=== PATIENT | female | born 1950 | race Caucasian/White ===

== ENCOUNTER 2021-08-03 18:57 | Inpatient (IN) | payer OTHER ==
[2021-08-03] MEDS ORDERED: VANCOMYCIN 1 GM in D5W (PRE-DOCKED) 1,000 MG/250 ML IVPB ONE (21:07)
[2021-08-03] MEDS ORDERED: PIPERACILLIN/TAZOB 4.5 GM 4.5 GM in DEXTROSE 5%-WATER 100 ML IVPB ONE (21:08)
[2021-08-03] MEDS ORDERED: methylPREDNISolone NA SUCC 125 MG/2 ML VIAL IVPB ONE (21:18)
[2021-08-03] MEDS ORDERED: methylPREDNISolone NA SUCC 125 MG/2 ML VIAL ONE (21:26)
[2021-08-03] MEDS ORDERED: PIPERACILLIN/TAZOB 4.5 GM 4.5 GM/100 ML BAG IVPB ONE (21:26)
[2021-08-03 21:38] LABS: BASO % 0.3 % (0-2.0); EOS % 1.1 % (0-4.5); HEMATOCRIT 30.8 % (32.4-45.2); HEMOGLOBIN 9.6 GM/dL (10.7-15.3); LYMPH % 10.2 % (8-40); MCH 28.9 pg (25.7-33.7); MCHC 31.2 g/dl (32.0-36.0); MEAN CELL VOLUME 92.7 fl (80-96); MEAN PLT VOLUME 11.2 fl (7.5-11.1); MONO % 8.3 % (3.8-10.2); NEUT % 80.1 % (42.8-82.8); PLATELET COUNT 279 10^3/uL (134-434); RBC 3.33 M/mm3 (3.60-5.2); RDW 16.3 % (11.6-15.6); WHITE BLOOD COUNT 11.2 K/mm3 (4.0-10.0)
[2021-08-03 22:14] LABS: CALCIUM 8.8 mg/dL (8.5-10.1)
[2021-08-03 22:15] LABS: ALBUMIN 2.8 g/dl (3.4-5.0); BLOOD UREA NITROGEN 38.8 mg/dL (7-18); MAGNESIUM 2.4 mg/dL (1.8-2.4)
[2021-08-03 22:18] LABS: CREATININE 0.7 mg/dL (0.55-1.3); PHOSPHOROUS 4.9 mg/dL (2.5-4.9)
[2021-08-03 22:19] LABS: BILIRUBIN,TOTAL 0.3 mg/dL (0.2-1); TOT PROT 6.7 g/dl (6.4-8.2)
[2021-08-03 22:25] LABS: N-TERMINAL BNP 638.6 pg/ml (5-125)
[2021-08-03] MEDS ORDERED: VANCOMYCIN 1 GRAM (PRE-DOCKED) 1,000 MG/250 ML BAG IVPB ONE (23:07)
[2021-08-03 23:09] LABS: VENOUS BASE EXCESS 8.9 mmol/L (-2-2); VENOUS O2 SATURATION 64.9 % (70-80); VENOUS PH 7.307 (7.310-7.410)
[2021-08-03 23:12] LABS: VENOUS PCO2 76.6 mmHg (38-52)
[2021-08-04] MEDS ORDERED: methylPREDNISolone NA SUCC 40 MG/1 ML VIAL ONE (04:01)
[2021-08-04] MEDS: methylPREDNISolone NA SUCC 40 MG/1 ML VIAL IVPUSH SCH ×3 (04:09→17:54)
[2021-08-04] MEDS ORDERED: ALPRAZolam 1 MG TABLET GT PRN (08:10)
[2021-08-04 08:53] LABS: CALCIUM 9.6 mg/dL (8.5-10.1)
[2021-08-04 08:54] LABS: ALBUMIN 3.3 g/dl (3.4-5.0); BLOOD UREA NITROGEN 39.2 mg/dL (7-18)
[2021-08-04 08:55] LABS: CREATININE 0.9 mg/dL (0.55-1.3)
[2021-08-04 08:57] LABS: BILIRUBIN,TOTAL 0.2 mg/dL (0.2-1); TOT PROT 7.5 g/dl (6.4-8.2)
[2021-08-04 08:58] LABS: HEMATOCRIT 35.9 % (32.4-45.2); HEMOGLOBIN 11.1 GM/dL (10.7-15.3); MCHC 30.8 g/dl (32.0-36.0); MEAN CELL VOLUME 93.9 fl (80-96); MEAN PLT VOLUME 10.3 fl (7.5-11.1); PLATELET COUNT 261 10^3/uL (134-434); RBC 3.83 M/mm3 (3.60-5.2); RDW 15.4 % (11.6-15.6); WHITE BLOOD COUNT 8.8 K/mm3 (4.0-10.0)
[2021-08-04] MEDS ORDERED: AZITHROMYCIN IVPB 500 MG/250 ML BAG IVPB SCH (10:00)
[2021-08-04] MEDS ORDERED: buPROPion HCL 100 MG TABLET GT SCH (10:00)
[2021-08-04] MEDS: APIXABAN 5 MG TABLET GT SCH ×2 (11:43→21:22)
[2021-08-04 11:57] LABS: ARTERIAL BLD GAS O2 SATURATION 98.8 % (95-98); ARTERIAL BLOOD GAS PO2 173.9 mmHg (80-100); ARTERIAL BLOOD GAS pH 7.226 (7.350-7.450)
[2021-08-04 11:58] LABS: ALLENS TEST POSITIVE
[2021-08-04] MEDS ORDERED: MELATONIN 5 MG TABLETS PO PRN (13:01)
[2021-08-04] MEDS ORDERED: FUROSEMIDE 40 MG TABLET (FP) PO SCH (14:00)
[2021-08-04 14:33] LABS: ALLENS TEST POSITIVE; ARTERIAL BLD GAS O2 SATURATION 94.2 % (95-98); ARTERIAL BLOOD GAS PO2 85.8 mmHg (80-100); ARTERIAL BLOOD GAS pH 7.243 (7.350-7.450)
[2021-08-04 14:34] LABS: VENT MODE A/C; VENT RATE 14
[2021-08-04] MEDS ORDERED: cefTRIAXone SODIUM 1 GM VIAL ONE (14:49)
[2021-08-04] MEDS ORDERED: DEXTROSE 5%-WATER - 50 ML IVPB ONE (14:49)
[2021-08-04] MEDS: CEFTRIAXONE 1 GM in DEXTROSE 5%-WATER - 50 ML IVPB SCH (15:06)
[2021-08-04] MEDS: PANTOPRAZOLE SODIUM 40 MG VIAL IVPUSH SCH (15:06)
[2021-08-04] MEDS: FUROSEMIDE 40 MG TABLET (FP) GT SCH (15:08)
[2021-08-04] MEDS: AZITHROMYCIN IVPB 500 MG/250 ML BAG IVPB SCH (15:38)
[2021-08-04] MEDS: buPROPion HCL 100 MG TABLET GT SCH (16:37)
[2021-08-04] MEDS: BUDESONIDE 0.5 MG/2 ML INH SUSP VIAL NEB SCH (20:40)
[2021-08-04] MEDS: ALBUTEROL SO4 2.5/IPRATROPIUM 0.5 INH SOL 3 ML VIAL.NEB. NEB SCH (20:40)
[2021-08-04] MEDS: ATORVASTATIN CA 40 MG TABLET (FP) GT SCH (21:22)
[2021-08-04] MEDS: CHLORHEXIDINE GLUCONATE 4% CLEANSER FOR DECOLONIZATION TP SCH (21:22)
[2021-08-04] MEDS: MUPIROCIN 2% TOPICAL OINTMENT FOR DECOLONIZATION NS SCH (21:26)
[2021-08-04] MEDS: MONTELUKAST NA 5 MG TAB.CHEW GT SCH (23:10)
[2021-08-05] MEDS: methylPREDNISolone NA SUCC 40 MG/1 ML VIAL IVPUSH SCH ×3 (01:18→18:06)
[2021-08-05] MEDS: FUROSEMIDE 40 MG TABLET (FP) GT SCH ×2 (05:13→13:57)
[2021-08-05 06:47] LABS: BASO % 0.1 % (0-2.0); HEMATOCRIT 28.8 % (32.4-45.2); HEMOGLOBIN 9.2 GM/dL (10.7-15.3); MCH 29.3 pg (25.7-33.7); MCHC 32.1 g/dl (32.0-36.0); MEAN CELL VOLUME 91.5 fl (80-96); MEAN PLT VOLUME 9.8 fl (7.5-11.1); MONO % 2.6 % (3.8-10.2); NEUT % 87.3 % (42.8-82.8); PLATELET COUNT 235 10^3/uL (134-434); RBC 3.15 M/mm3 (3.60-5.2); WHITE BLOOD COUNT 6.6 K/mm3 (4.0-10.0)
[2021-08-05 07:04] LABS: BLOOD UREA NITROGEN 37.8 mg/dL (7-18); MAGNESIUM 2.4 mg/dL (1.8-2.4)
[2021-08-05 07:04] LABS: ARTERIAL BLD GAS O2 SATURATION 95.7 % (95-98); ARTERIAL BLOOD GAS BASE EXCESS 11.1 mmol/L (-2-2); ARTERIAL BLOOD GAS PO2 86.8 mmHg (80-100); ARTERIAL BLOOD GAS pH 7.348 (7.350-7.450)
[2021-08-05 07:06] LABS: ALLENS TEST POSITIVE; VENT MODE A/C; VENT RATE 16
[2021-08-05 07:07] LABS: CREATININE 0.7 mg/dL (0.55-1.3); PHOSPHOROUS 3.6 mg/dL (2.5-4.9)
[2021-08-05 07:09] LABS: BILIRUBIN,TOTAL 0.2 mg/dL (0.2-1)
[2021-08-05 07:21] LABS: ALBUMIN 2.6 g/dl (3.4-5.0)
[2021-08-05] MEDS: ALBUTEROL SO4 2.5/IPRATROPIUM 0.5 INH SOL 3 ML VIAL.NEB. NEB SCH ×4 (08:00→20:48)
[2021-08-05] MEDS: BUDESONIDE 0.5 MG/2 ML INH SUSP VIAL NEB SCH ×2 (08:00→20:48)
[2021-08-05] MEDS ORDERED: DEXTROSE 5%-WATER - 50 ML IVPB ONE (09:51)
[2021-08-05] MEDS ORDERED: cefTRIAXone SODIUM 1 GM VIAL ONE (09:51)
[2021-08-05] MEDS ORDERED: acetaZOLAMIDE 250 MG TABLET PO SCH (10:00)
[2021-08-05] MEDS ORDERED: acetaZOLAMIDE 250 MG TABLET GT SCH (10:00)
[2021-08-05] MEDS ORDERED: AZITHROMYCIN IVPB 500 MG/250 ML BAG IVPB SCH (10:00)
[2021-08-05] MEDS: CEFTRIAXONE 1 GM in DEXTROSE 5%-WATER - 50 ML IVPB SCH (10:12)
[2021-08-05] MEDS: PANTOPRAZOLE SODIUM 40 MG VIAL IVPUSH SCH (10:12)
[2021-08-05] MEDS: MUPIROCIN 2% TOPICAL OINTMENT FOR DECOLONIZATION NS SCH ×2 (10:13→21:43)
[2021-08-05] MEDS: AZITHROMYCIN IVPB 500 MG/250 ML BAG IVPB SCH (10:13)
[2021-08-05] MEDS: APIXABAN 5 MG TABLET GT SCH ×2 (10:18→21:43)
[2021-08-05] MEDS: buPROPion HCL 100 MG TABLET GT SCH (10:55)
[2021-08-05 17:58] LABS: PH,URINE 5.5 (5.0-8.0); URINE APPEARANCE CLEAR; URINE BILIRUBIN NEGATIVE (NEGATIVE); URINE COLOR YELLOW; URINE GLUCOSE (UA) NEGATIVE (NEGATIVE); URINE KETONE NEGATIVE (NEGATIVE); URINE LEUK ESTERASE NEGATIVE (NEGATIVE); URINE NITRITE NEGATIVE (NEGATIVE); URINE PROTEIN NEGATIVE (NEGATIVE); URINE UROBILINOGEN 0.2 mg/dL (0.2-1.0)
[2021-08-05] MEDS ORDERED: ALPRAZolam 1 MG TABLET GT ONE (19:32)
[2021-08-05] MEDS: MONTELUKAST NA 5 MG TAB.CHEW GT SCH (21:42)
[2021-08-05] MEDS: CHLORHEXIDINE GLUCONATE 4% CLEANSER FOR DECOLONIZATION TP SCH (21:43)
[2021-08-05] MEDS: ATORVASTATIN CA 40 MG TABLET (FP) GT SCH (21:43)
[2021-08-06] MEDS: methylPREDNISolone NA SUCC 40 MG/1 ML VIAL IVPUSH SCH ×3 (01:20→21:57)
[2021-08-06] MEDS: FUROSEMIDE 40 MG TABLET (FP) GT SCH ×2 (05:51→13:53)
[2021-08-06 07:32] LABS: HEMATOCRIT 30.9 % (32.4-45.2); HEMOGLOBIN 9.6 GM/dL (10.7-15.3); MCH 28.2 pg (25.7-33.7); MCHC 31.2 g/dl (32.0-36.0); MEAN CELL VOLUME 90.3 fl (80-96); MEAN PLT VOLUME 9.9 fl (7.5-11.1); PLATELET COUNT 255 10^3/uL (134-434); RBC 3.42 M/mm3 (3.60-5.2); RDW 15.6 % (11.6-15.6); WHITE BLOOD COUNT 7.6 K/mm3 (4.0-10.0)
[2021-08-06 07:35] LABS: ALBUMIN 2.7 g/dl (3.4-5.0); BLOOD UREA NITROGEN 43.9 mg/dL (7-18)
[2021-08-06 07:39] LABS: CREATININE 0.7 mg/dL (0.55-1.3)
[2021-08-06 07:40] LABS: BILIRUBIN,TOTAL 0.3 mg/dL (0.2-1); TOT PROT 6.2 g/dl (6.4-8.2)
[2021-08-06] MEDS: ALBUTEROL SO4 2.5/IPRATROPIUM 0.5 INH SOL 3 ML VIAL.NEB. NEB SCH ×4 (08:00→20:05)
[2021-08-06] MEDS: BUDESONIDE 0.5 MG/2 ML INH SUSP VIAL NEB SCH ×2 (08:35→20:05)
[2021-08-06] MEDS ORDERED: cefTRIAXone SODIUM 1 GM VIAL ONE (09:22)
[2021-08-06] MEDS ORDERED: DEXTROSE 5%-WATER - 50 ML IVPB ONE (09:22)
[2021-08-06] MEDS: MUPIROCIN 2% TOPICAL OINTMENT FOR DECOLONIZATION NS SCH ×2 (10:08→21:57)
[2021-08-06] MEDS: CEFTRIAXONE 1 GM in DEXTROSE 5%-WATER - 50 ML IVPB SCH (10:09)
[2021-08-06] MEDS: buPROPion HCL 100 MG TABLET GT SCH (10:09)
[2021-08-06] MEDS: APIXABAN 5 MG TABLET GT SCH ×2 (10:09→21:57)
[2021-08-06] MEDS: AZITHROMYCIN IVPB 500 MG/250 ML BAG IVPB SCH (10:12)
[2021-08-06] MEDS: PANTOPRAZOLE SODIUM 40 MG VIAL IVPUSH SCH (10:12)
[2021-08-06] MEDS ORDERED: ALPRAZolam 1 MG TABLET GT ONE (21:29)
[2021-08-06] MEDS: CHLORHEXIDINE GLUCONATE 4% CLEANSER FOR DECOLONIZATION TP SCH (21:57)
[2021-08-06] MEDS: ATORVASTATIN CA 40 MG TABLET (FP) GT SCH (21:57)
[2021-08-06] MEDS: MONTELUKAST NA 5 MG TAB.CHEW GT SCH (21:57)
[2021-08-07] MEDS ORDERED: ACETAMINOPHEN 325 MG TABLET (FP) PO ONE (02:44)
[2021-08-07] MEDS ORDERED: ACETAMINOPHEN 650 MG/20.3 ML ORAL SOLUTION (CUPS) GT ONE (02:47)
[2021-08-07] MEDS: FUROSEMIDE 40 MG TABLET (FP) GT SCH ×2 (06:18→14:02)
[2021-08-07] MEDS: ALBUTEROL SO4 2.5/IPRATROPIUM 0.5 INH SOL 3 ML VIAL.NEB. NEB SCH ×4 (07:05→20:56)
[2021-08-07] MEDS: BUDESONIDE 0.5 MG/2 ML INH SUSP VIAL NEB SCH ×2 (07:05→21:00)
[2021-08-07] MEDS ORDERED: cefTRIAXone SODIUM 1 GM VIAL ONE (09:01)
[2021-08-07] MEDS ORDERED: DEXTROSE 5%-WATER - 50 ML IVPB ONE (09:01)
[2021-08-07] MEDS: CEFTRIAXONE 1 GM in DEXTROSE 5%-WATER - 50 ML IVPB SCH (09:35)
[2021-08-07] MEDS: AZITHROMYCIN IVPB 500 MG/250 ML BAG IVPB SCH (09:35)
[2021-08-07] MEDS: methylPREDNISolone NA SUCC 40 MG/1 ML VIAL IVPUSH SCH ×2 (09:35→22:13)
[2021-08-07] MEDS: APIXABAN 5 MG TABLET GT SCH ×2 (09:36→22:12)
[2021-08-07] MEDS: PANTOPRAZOLE SODIUM 40 MG VIAL IVPUSH SCH (09:36)
[2021-08-07] MEDS: buPROPion HCL 100 MG TABLET GT SCH (09:36)
[2021-08-07] MEDS: MUPIROCIN 2% TOPICAL OINTMENT FOR DECOLONIZATION NS SCH ×2 (09:36→22:13)
[2021-08-07] MEDS ORDERED: hydrALAZINE HCL 20 MG/ML VIAL IVPUSH ONE (19:59)
[2021-08-07] MEDS ORDERED: ALPRAZolam 0.25 MG TABLET GT PRN (21:10)
[2021-08-07] MEDS: ATORVASTATIN CA 40 MG TABLET (FP) GT SCH (22:12)
[2021-08-07] MEDS: CHLORHEXIDINE GLUCONATE 4% CLEANSER FOR DECOLONIZATION TP SCH (22:13)
[2021-08-07] MEDS: MONTELUKAST NA 5 MG TAB.CHEW GT SCH (22:13)
[2021-08-08] MEDS: FUROSEMIDE 40 MG TABLET (FP) GT SCH ×2 (05:45→15:02)
[2021-08-08 07:37] LABS: CHLORIDE 91 mmol/L (98-107); SODIUM 140 mmol/L (136-145)
[2021-08-08 07:42] LABS: ALBUMIN 3.2 g/dl (3.4-5.0); CALCIUM 9.3 mg/dL (8.5-10.1); GLUCOSE,RANDOM 172 mg/dL (74-106)
[2021-08-08 07:43] LABS: BLOOD UREA NITROGEN 33.2 mg/dL (7-18)
[2021-08-08 07:45] LABS: CREATININE 0.6 mg/dL (0.55-1.3); SGOT/AST 9 U/L (15-37); SGPT/ALT 17 U/L (13-61)
[2021-08-08 07:47] LABS: BILIRUBIN,TOTAL 0.2 mg/dL (0.2-1); TOT PROT 6.7 g/dl (6.4-8.2)
[2021-08-08 07:48] LABS: ALK PHOS 82 U/L (45-117); ANION GAP 4 MMOL/L (8-16); CO2 > 45 mmol/L (21-32)
[2021-08-08] MEDS: BUDESONIDE 0.5 MG/2 ML INH SUSP VIAL NEB SCH ×2 (08:25→20:05)
[2021-08-08] MEDS: ALBUTEROL SO4 2.5/IPRATROPIUM 0.5 INH SOL 3 ML VIAL.NEB. NEB SCH ×4 (08:30→20:05)
[2021-08-08] MEDS ORDERED: cefTRIAXone SODIUM 1 GM VIAL ONE (09:43)
[2021-08-08] MEDS ORDERED: DEXTROSE 5%-WATER - 50 ML IVPB ONE (09:43)
[2021-08-08] MEDS: methylPREDNISolone NA SUCC 40 MG/1 ML VIAL IVPUSH SCH ×2 (09:57→22:17)
[2021-08-08] MEDS: CEFTRIAXONE 1 GM in DEXTROSE 5%-WATER - 50 ML IVPB SCH (09:58)
[2021-08-08] MEDS: APIXABAN 5 MG TABLET GT SCH ×2 (10:00→22:17)
[2021-08-08] MEDS: PANTOPRAZOLE SODIUM 40 MG VIAL IVPUSH SCH (10:00)
[2021-08-08] MEDS: buPROPion HCL 100 MG TABLET GT SCH (10:01)
[2021-08-08] MEDS: MUPIROCIN 2% TOPICAL OINTMENT FOR DECOLONIZATION NS SCH ×2 (10:02→22:17)
[2021-08-08] MEDS: AZITHROMYCIN IVPB 500 MG/250 ML BAG IVPB SCH (10:22)
[2021-08-08] MEDS: THEOPHYLLINE ANHYDROUS 80 MG/15 ML GT SCH ×2 (12:18→22:17)
[2021-08-08] MEDS: MONTELUKAST NA 5 MG TAB.CHEW GT SCH (22:17)
[2021-08-08] MEDS: CHLORHEXIDINE GLUCONATE 4% CLEANSER FOR DECOLONIZATION TP SCH (22:17)
[2021-08-08] MEDS: ATORVASTATIN CA 40 MG TABLET (FP) GT SCH (22:17)
[2021-08-09] MEDS ORDERED: ALBUTEROL SO4 2.5/IPRATROPIUM 0.5 INH SOL 3 ML VIAL.NEB. NEB ONE (00:42)
[2021-08-09] MEDS ORDERED: LORazepam 2 MG/ML SDV VIAL IVPUSH ONE (05:10)
[2021-08-09] MEDS: FUROSEMIDE 40 MG TABLET (FP) GT SCH ×2 (05:19→14:00)
[2021-08-09] MEDS: ALBUTEROL SO4 2.5/IPRATROPIUM 0.5 INH SOL 3 ML VIAL.NEB. NEB SCH ×4 (08:50→20:10)
[2021-08-09] MEDS: BUDESONIDE 0.5 MG/2 ML INH SUSP VIAL NEB SCH ×2 (08:50→20:10)
[2021-08-09] MEDS ORDERED: cefTRIAXone SODIUM 1 GM VIAL ONE (09:00)
[2021-08-09] MEDS ORDERED: DEXTROSE 5%-WATER - 50 ML IVPB ONE (09:01)
[2021-08-09 09:02] LABS: BASO % 0.1 % (0-2.0); EOS % 0.1 % (0-4.5); HEMATOCRIT 38.4 % (32.4-45.2); HEMOGLOBIN 12.3 GM/dL (10.7-15.3); LYMPH % 11.4 % (8-40); MCH 28.9 pg (25.7-33.7); MEAN CELL VOLUME 90.4 fl (80-96); MEAN PLT VOLUME 9.8 fl (7.5-11.1); MONO % 5.1 % (3.8-10.2); NEUT % 83.3 % (42.8-82.8); PLATELET COUNT 359 10^3/uL (134-434); RBC 4.25 M/mm3 (3.60-5.2); RDW 15.2 % (11.6-15.6); WHITE BLOOD COUNT 15.2 K/mm3 (4.0-10.0)
[2021-08-09 09:18] LABS: CHLORIDE 87 mmol/L (98-107); SODIUM 137 mmol/L (136-145)
[2021-08-09 09:19] LABS: ALBUMIN 3.4 g/dl (3.4-5.0)
[2021-08-09 09:20] LABS: CALCIUM 9.6 mg/dL (8.5-10.1)
[2021-08-09 09:21] LABS: BLOOD UREA NITROGEN 39.7 mg/dL (7-18); GLUCOSE,RANDOM 97 mg/dL (74-106); MAGNESIUM 2.4 mg/dL (1.8-2.4)
[2021-08-09] MEDS: PANTOPRAZOLE SODIUM 40 MG VIAL IVPUSH SCH (09:22)
[2021-08-09] MEDS: methylPREDNISolone NA SUCC 40 MG/1 ML VIAL IVPUSH SCH ×2 (09:23→22:21)
[2021-08-09] MEDS: MUPIROCIN 2% TOPICAL OINTMENT FOR DECOLONIZATION NS SCH (09:23)
[2021-08-09] MEDS: CEFTRIAXONE 1 GM in DEXTROSE 5%-WATER - 50 ML IVPB SCH (09:23)
[2021-08-09] MEDS: APIXABAN 5 MG TABLET GT SCH ×2 (09:23→22:20)
[2021-08-09 09:24] LABS: CREATININE 0.7 mg/dL (0.55-1.3); PHOSPHOROUS 3.7 mg/dL (2.5-4.9); SGOT/AST 10 U/L (15-37); SGPT/ALT 17 U/L (13-61)
[2021-08-09] MEDS: AZITHROMYCIN IVPB 500 MG/250 ML BAG IVPB SCH (09:24)
[2021-08-09 09:25] LABS: BILIRUBIN,TOTAL 0.2 mg/dL (0.2-1); TOT PROT 6.7 g/dl (6.4-8.2)
[2021-08-09 09:27] LABS: ALK PHOS 83 U/L (45-117)
[2021-08-09] MEDS: THEOPHYLLINE ANHYDROUS 80 MG/15 ML GT SCH ×2 (09:29→22:21)
[2021-08-09] MEDS: buPROPion HCL 100 MG TABLET GT SCH (09:29)
[2021-08-09 09:46] LABS: ANION GAP 5 MMOL/L (8-16); CO2 > 45 mmol/L (21-32)
[2021-08-09] MEDS ORDERED: FUROSEMIDE 40 MG/4 ML INJECTABLE VIAL IVPUSH ONE (12:20)
[2021-08-09] MEDS ORDERED: METOPROLOL TARTRATE 5 MG/5 ML VIAL IVPUSH ONE (13:22)
[2021-08-09] MEDS ORDERED: METOPROLOL TARTRATE 5 MG/5 ML VIAL ONE (13:26)
[2021-08-09] MEDS ORDERED: ALPRAZolam 0.25 MG TABLET PO ONE (17:22)
[2021-08-09] MEDS: ATORVASTATIN CA 40 MG TABLET (FP) GT SCH (22:20)
[2021-08-09] MEDS: CHLORHEXIDINE GLUCONATE 4% CLEANSER FOR DECOLONIZATION TP SCH (22:20)
[2021-08-09] MEDS: MONTELUKAST NA 5 MG TAB.CHEW GT SCH (22:21)
[2021-08-09] MEDS: BANATROL PLUS POWDER PACKET PO SCH (23:48)
[2021-08-10] MEDS ORDERED: ALBUTEROL SO4 2.5/IPRATROPIUM 0.5 INH SOL 3 ML VIAL.NEB. NEB ONE (01:20)
[2021-08-10] MEDS ORDERED: ACETAMINOPHEN 1000 MG/100 ML BAG IVPB ONE ×2 (01:20)
[2021-08-10] MEDS ORDERED: ACETAMINOPHEN 325 MG TABLET (FP) PO ONE (01:20)
[2021-08-10] MEDS: FUROSEMIDE 40 MG TABLET (FP) GT SCH ×2 (06:56→14:00)
[2021-08-10] MEDS: BANATROL PLUS POWDER PACKET PO SCH ×3 (06:56→21:29)
[2021-08-10] MEDS: ALBUTEROL SO4 2.5/IPRATROPIUM 0.5 INH SOL 3 ML VIAL.NEB. NEB SCH ×4 (07:25→20:29)
[2021-08-10] MEDS: BUDESONIDE 0.5 MG/2 ML INH SUSP VIAL NEB SCH ×2 (07:26→20:30)
[2021-08-10] MEDS ORDERED: cefTRIAXone SODIUM 1 GM VIAL ONE (09:55)
[2021-08-10] MEDS ORDERED: DEXTROSE 5%-WATER - 50 ML IVPB ONE (09:55)
[2021-08-10] MEDS: PANTOPRAZOLE SODIUM 40 MG VIAL IVPUSH SCH (10:10)
[2021-08-10] MEDS: CEFTRIAXONE 1 GM in DEXTROSE 5%-WATER - 50 ML IVPB SCH (10:10)
[2021-08-10] MEDS: APIXABAN 5 MG TABLET GT SCH ×2 (10:10→21:29)
[2021-08-10] MEDS: methylPREDNISolone NA SUCC 40 MG/1 ML VIAL IVPUSH SCH ×2 (10:11→21:29)
[2021-08-10] MEDS: THEOPHYLLINE ANHYDROUS 80 MG/15 ML GT SCH ×2 (10:11→21:29)
[2021-08-10] MEDS: buPROPion HCL 100 MG TABLET GT SCH (10:11)
[2021-08-10] MEDS: AZITHROMYCIN IVPB 500 MG/250 ML BAG IVPB SCH (10:13)
[2021-08-10] MEDS ORDERED: ALPRAZolam 0.25 MG TABLET PO ONE (21:17)
[2021-08-10] MEDS: MONTELUKAST NA 5 MG TAB.CHEW GT SCH (21:29)
[2021-08-10] MEDS: CHLORHEXIDINE GLUCONATE 4% CLEANSER FOR DECOLONIZATION TP SCH (21:30)
[2021-08-10] MEDS: ATORVASTATIN CA 40 MG TABLET (FP) GT SCH (21:31)
[2021-08-10 21:47] LABS: EPI CELLS 1 /uL (0-25.1); HYALINE CASTS 0 /uL (0-3.1); URINE APPEARANCE CLEAR; URINE BACTERIA 16 /uL (0-1359); URINE BILIRUBIN NEGATIVE (NEGATIVE); URINE COLOR YELLOW; URINE GLUCOSE (UA) NEGATIVE (NEGATIVE); URINE KETONE NEGATIVE (NEGATIVE); URINE LEUK ESTERASE TRACE (NEGATIVE); URINE NITRITE NEGATIVE (NEGATIVE); URINE PROTEIN NEGATIVE (NEGATIVE); URINE RBC 22 /uL (0-23.9); URINE UROBILINOGEN 0.2 mg/dL (0.2-1.0); URINE WBC 3 /uL (0-25.8)
[2021-08-11] MEDS ORDERED: ALBUTEROL SO4 2.5/IPRATROPIUM 0.5 INH SOL 3 ML VIAL.NEB. NEB ONE (01:54)
[2021-08-11] MEDS: BANATROL PLUS POWDER PACKET PO SCH ×3 (05:35→21:01)
[2021-08-11] MEDS: FUROSEMIDE 40 MG TABLET (FP) GT SCH ×2 (05:35→14:23)
[2021-08-11] MEDS: ALBUTEROL SO4 2.5/IPRATROPIUM 0.5 INH SOL 3 ML VIAL.NEB. NEB SCH ×4 (08:02→20:11)
[2021-08-11] MEDS: BUDESONIDE 0.5 MG/2 ML INH SUSP VIAL NEB SCH ×2 (08:03→20:11)
[2021-08-11] MEDS: PANTOPRAZOLE SODIUM 40 MG VIAL IVPUSH SCH (10:44)
[2021-08-11] MEDS: buPROPion HCL 100 MG TABLET GT SCH (10:44)
[2021-08-11] MEDS: APIXABAN 5 MG TABLET GT SCH ×2 (10:44→21:01)
[2021-08-11] MEDS: THEOPHYLLINE ANHYDROUS 80 MG/15 ML GT SCH ×2 (10:44→21:02)
[2021-08-11] MEDS: methylPREDNISolone NA SUCC 40 MG/1 ML VIAL IVPUSH SCH ×2 (10:44→21:01)
[2021-08-11] MEDS ORDERED: THEOPHYLLINE ANHYDROUS 80 MG/15 ML GT SCH (11:30)
[2021-08-11] MEDS: ALPRAZolam 1 MG TABLET PO SCH (14:56)
[2021-08-11] MEDS: ATORVASTATIN CA 40 MG TABLET (FP) GT SCH (21:01)
[2021-08-11] MEDS: CHLORHEXIDINE GLUCONATE 4% CLEANSER FOR DECOLONIZATION TP SCH (21:01)
[2021-08-11] MEDS: MONTELUKAST NA 5 MG TAB.CHEW GT SCH (21:02)
[2021-08-12] MEDS: ALPRAZolam 1 MG TABLET PO SCH ×2 (01:48→14:56)
[2021-08-12] MEDS: FUROSEMIDE 40 MG TABLET (FP) GT SCH ×2 (05:25→14:56)
[2021-08-12] MEDS: BANATROL PLUS POWDER PACKET PO SCH ×3 (05:25→21:16)
[2021-08-12] MEDS ORDERED: ALBUTEROL SO4 2.5/IPRATROPIUM 0.5 INH SOL 3 ML VIAL.NEB. NEB ONE (06:06)
[2021-08-12] MEDS: ALBUTEROL SO4 2.5/IPRATROPIUM 0.5 INH SOL 3 ML VIAL.NEB. NEB SCH ×4 (08:10→20:15)
[2021-08-12] MEDS: BUDESONIDE 0.5 MG/2 ML INH SUSP VIAL NEB SCH ×2 (08:15→20:27)
[2021-08-12] MEDS: PANTOPRAZOLE SODIUM 40 MG VIAL IVPUSH SCH (10:04)
[2021-08-12] MEDS: APIXABAN 5 MG TABLET GT SCH ×2 (10:04→21:16)
[2021-08-12] MEDS: methylPREDNISolone NA SUCC 40 MG/1 ML VIAL IVPUSH SCH ×2 (10:04→21:16)
[2021-08-12] MEDS: buPROPion HCL 100 MG TABLET GT SCH (10:06)
[2021-08-12] MEDS: THEOPHYLLINE ANHYDROUS 80 MG/15 ML GT SCH ×2 (10:06→23:00)
[2021-08-12] MEDS ORDERED: dilTIAZem HCL 25 MG/5 ML - 5 ML VIAL IVPUSH PRN (17:12)
[2021-08-12] MEDS: ATORVASTATIN CA 40 MG TABLET (FP) GT SCH (21:16)
[2021-08-12] MEDS: MONTELUKAST NA 5 MG TAB.CHEW GT SCH (21:16)
[2021-08-12] MEDS: CHLORHEXIDINE GLUCONATE 4% CLEANSER FOR DECOLONIZATION TP SCH (21:16)
[2021-08-13] MEDS: ALPRAZolam 1 MG TABLET PO SCH ×2 (01:48→13:54)
[2021-08-13] MEDS: BANATROL PLUS POWDER PACKET PO SCH ×3 (05:44→21:42)
[2021-08-13] MEDS: FUROSEMIDE 40 MG TABLET (FP) GT SCH ×2 (05:44→13:44)
[2021-08-13] MEDS: BUDESONIDE 0.5 MG/2 ML INH SUSP VIAL NEB SCH ×2 (07:39→21:03)
[2021-08-13] MEDS: ALBUTEROL SO4 2.5/IPRATROPIUM 0.5 INH SOL 3 ML VIAL.NEB. NEB SCH ×4 (07:39→20:53)
[2021-08-13] MEDS: methylPREDNISolone NA SUCC 40 MG/1 ML VIAL IVPUSH SCH (09:00)
[2021-08-13] MEDS: APIXABAN 5 MG TABLET GT SCH ×2 (09:01→21:42)
[2021-08-13] MEDS: PANTOPRAZOLE SODIUM 40 MG VIAL IVPUSH SCH (09:01)
[2021-08-13] MEDS: THEOPHYLLINE ANHYDROUS 80 MG/15 ML GT SCH ×2 (09:03→21:42)
[2021-08-13] MEDS: buPROPion HCL 100 MG TABLET PO SCH (09:11)
[2021-08-13] MEDS: PANTOPRAZOLE 40 MG TABLET PO SCH (10:51)
[2021-08-13] MEDS: predniSONE 20 MG TABLET (UD) PO SCH ×2 (10:51→21:42)
[2021-08-13] MEDS ORDERED: dilTIAZem HCL 25 MG/5 ML - 5 ML VIAL IVPUSH PRN (15:43)
[2021-08-13] MEDS: ATORVASTATIN CA 40 MG TABLET (FP) GT SCH (21:42)
[2021-08-13] MEDS: MONTELUKAST NA 5 MG TAB.CHEW GT SCH (21:42)
[2021-08-13] MEDS: CHLORHEXIDINE GLUCONATE 4% CLEANSER FOR DECOLONIZATION TP SCH (21:42)
[2021-08-14] MEDS: ALPRAZolam 1 MG TABLET PO SCH ×2 (01:49→14:16)
[2021-08-14] MEDS ORDERED: ALBUTEROL SO4 2.5/IPRATROPIUM 0.5 INH SOL 3 ML VIAL.NEB. NEB PRN (04:04)
[2021-08-14] MEDS: ALBUTEROL SO4 2.5/IPRATROPIUM 0.5 INH SOL 3 ML VIAL.NEB. NEB SCH ×4 (08:10→20:05)
[2021-08-14] MEDS: BUDESONIDE 0.5 MG/2 ML INH SUSP VIAL NEB SCH ×2 (08:10→20:05)
[2021-08-14] MEDS: predniSONE 20 MG TABLET (UD) PO SCH ×2 (11:53→21:48)
[2021-08-14] MEDS: APIXABAN 5 MG TABLET GT SCH ×2 (11:53→21:48)
[2021-08-14] MEDS: METOPROLOL TARTRATE 25 MG TABLET (FP) PO SCH ×2 (11:54→21:48)
[2021-08-14] MEDS: FUROSEMIDE 40 MG TABLET (FP) GT SCH (11:54)
[2021-08-14] MEDS: THEOPHYLLINE ANHYDROUS 80 MG/15 ML GT SCH ×2 (11:56→21:48)
[2021-08-14] MEDS: buPROPion HCL 100 MG TABLET PO SCH (13:07)
[2021-08-14] MEDS: PANTOPRAZOLE 40 MG TABLET PO SCH (13:07)
[2021-08-14] MEDS: ATORVASTATIN CA 40 MG TABLET (FP) GT SCH (21:48)
[2021-08-14] MEDS: MONTELUKAST NA 5 MG TAB.CHEW GT SCH (21:48)
[2021-08-15] MEDS ORDERED: ALBUTEROL SO4 2.5/IPRATROPIUM 0.5 INH SOL 3 ML VIAL.NEB. NEB ONE (01:19)
[2021-08-15] MEDS: ALPRAZolam 1 MG TABLET PO SCH ×2 (02:20→14:48)
[2021-08-15] MEDS: BUDESONIDE 0.5 MG/2 ML INH SUSP VIAL NEB SCH ×2 (08:40→20:24)
[2021-08-15] MEDS: ALBUTEROL SO4 2.5/IPRATROPIUM 0.5 INH SOL 3 ML VIAL.NEB. NEB SCH ×4 (08:40→20:23)
[2021-08-15] MEDS: APIXABAN 5 MG TABLET GT SCH ×2 (10:03→22:46)
[2021-08-15] MEDS: FUROSEMIDE 40 MG TABLET (FP) GT SCH (10:03)
[2021-08-15] MEDS: predniSONE 20 MG TABLET (UD) PO SCH (10:03)
[2021-08-15] MEDS: METOPROLOL TARTRATE 25 MG TABLET (FP) PO SCH (10:03)
[2021-08-15] MEDS: THEOPHYLLINE ANHYDROUS 80 MG/15 ML GT SCH ×2 (10:04→22:46)
[2021-08-15] MEDS: FAMOTIDINE 40 MG/5 ML ORAL SUSPENSION GT SCH ×2 (15:46→22:46)
[2021-08-15] MEDS: PANTOPRAZOLE 40 MG TABLET PO SCH (15:50)
[2021-08-15] MEDS ORDERED: buPROPion HCL 100 MG TABLET GT SCH ×2 (18:14→18:15)
[2021-08-15] MEDS: ALPRAZolam 1 MG TABLET GT SCH (18:23)
[2021-08-15] MEDS: buPROPion HCL 100 MG TABLET PO SCH (18:35)
[2021-08-15] MEDS: METOPROLOL TARTRATE 25 MG TABLET (FP) GT SCH (22:45)
[2021-08-15] MEDS: ATORVASTATIN CA 40 MG TABLET (FP) GT SCH (22:45)
[2021-08-15] MEDS: MONTELUKAST NA 5 MG TAB.CHEW GT SCH (22:46)
[2021-08-15] MEDS: predniSONE 20 MG TABLET (UD) GT SCH (22:46)
[2021-08-16] MEDS ORDERED: ALPRAZolam 1 MG TABLET GT ONE (01:38)
[2021-08-16] MEDS ORDERED: ALBUTEROL SO4 2.5/IPRATROPIUM 0.5 INH SOL 3 ML VIAL.NEB. NEB ONE (04:19)
[2021-08-16] MEDS: ALBUTEROL SO4 2.5/IPRATROPIUM 0.5 INH SOL 3 ML VIAL.NEB. NEB SCH ×5 (07:52→20:21)
[2021-08-16] MEDS: BUDESONIDE 0.5 MG/2 ML INH SUSP VIAL NEB SCH ×2 (07:53→20:23)
[2021-08-16] MEDS: METOPROLOL TARTRATE 25 MG TABLET (FP) GT SCH ×2 (09:45→22:02)
[2021-08-16] MEDS: APIXABAN 5 MG TABLET GT SCH ×2 (09:45→22:02)
[2021-08-16] MEDS: predniSONE 20 MG TABLET (UD) GT SCH ×2 (09:46→22:02)
[2021-08-16] MEDS: THEOPHYLLINE ANHYDROUS 80 MG/15 ML GT SCH ×2 (09:47→22:01)
[2021-08-16] MEDS: FUROSEMIDE 40 MG TABLET (FP) GT SCH (09:47)
[2021-08-16] MEDS: FAMOTIDINE 40 MG/5 ML ORAL SUSPENSION GT SCH ×2 (12:33→22:24)
[2021-08-16] MEDS: ALPRAZolam 1 MG TABLET GT SCH ×2 (13:39→22:01)
[2021-08-16] MEDS: buPROPion HCL 100 MG TABLET PO SCH (18:00)
[2021-08-16] MEDS: ATORVASTATIN CA 40 MG TABLET (FP) GT SCH (22:02)
[2021-08-16] MEDS: MONTELUKAST NA 5 MG TAB.CHEW GT SCH (22:02)
[2021-08-17] MEDS: ALPRAZolam 1 MG TABLET GT SCH ×2 (06:19→18:06)
[2021-08-17] MEDS: ALBUTEROL SO4 2.5/IPRATROPIUM 0.5 INH SOL 3 ML VIAL.NEB. NEB SCH ×4 (07:04→20:30)
[2021-08-17] MEDS: BUDESONIDE 0.5 MG/2 ML INH SUSP VIAL NEB SCH ×2 (07:04→20:31)
[2021-08-17 11:31] LABS: ALLENS TEST POSITIVE; ARTERIAL BLD GAS O2 SATURATION 97.9 % (95-98); ARTERIAL BLOOD GAS BASE EXCESS 16.2 mmol/L (-2-2); ARTERIAL BLOOD GAS PO2 115.4 mmHg (80-100); ARTERIAL BLOOD GAS pH 7.376 (7.350-7.450)
[2021-08-17] MEDS: APIXABAN 5 MG TABLET GT SCH ×2 (11:38→21:26)
[2021-08-17] MEDS: FUROSEMIDE 40 MG TABLET (FP) GT SCH (11:38)
[2021-08-17] MEDS: METOPROLOL TARTRATE 25 MG TABLET (FP) GT SCH ×2 (11:38→21:26)
[2021-08-17] MEDS: predniSONE 20 MG TABLET (UD) GT SCH ×2 (11:38→21:27)
[2021-08-17] MEDS: FAMOTIDINE 40 MG/5 ML ORAL SUSPENSION GT SCH ×2 (15:10→21:27)
[2021-08-17] MEDS: THEOPHYLLINE ANHYDROUS 80 MG/15 ML GT SCH ×2 (15:10→21:28)
[2021-08-17] MEDS: buPROPion HCL 100 MG TABLET PO SCH (15:11)
[2021-08-17] MEDS: POLYETHYLENE GLYCOL (HEALTHYLAX) 3350 17 GM PACKET PEG SCH (18:06)
[2021-08-17] MEDS: ATORVASTATIN CA 40 MG TABLET (FP) GT SCH (21:26)
[2021-08-17] MEDS: MONTELUKAST NA 5 MG TAB.CHEW GT SCH (21:28)
[2021-08-18] MEDS: ALBUTEROL SO4 0.083% IH SOL 2.5 MG/3 ML VIAL.NEB. NEB PRN ×3 (01:30→23:04)
[2021-08-18] MEDS: ALPRAZolam 1 MG TABLET GT SCH ×2 (06:28→17:56)
[2021-08-18 07:34] LABS: ARTERIAL BLD GAS O2 SATURATION 89.3 % (95-98); ARTERIAL BLOOD GAS BASE EXCESS 18.7 mmol/L (-2-2); ARTERIAL BLOOD GAS PO2 64.5 mmHg (80-100); ARTERIAL BLOOD GAS pH 7.326 (7.350-7.450)
[2021-08-18 07:37] LABS: ALLENS TEST POSITIVE
[2021-08-18] MEDS: ALBUTEROL SO4 2.5/IPRATROPIUM 0.5 INH SOL 3 ML VIAL.NEB. NEB SCH ×4 (08:30→20:10)
[2021-08-18] MEDS: BUDESONIDE 0.5 MG/2 ML INH SUSP VIAL NEB SCH ×2 (08:55→20:11)
[2021-08-18] MEDS: POLYETHYLENE GLYCOL (HEALTHYLAX) 3350 17 GM PACKET PEG SCH (11:45)
[2021-08-18] MEDS: predniSONE 20 MG TABLET (UD) GT SCH ×2 (11:45→21:10)
[2021-08-18] MEDS: APIXABAN 5 MG TABLET GT SCH ×2 (11:46→21:11)
[2021-08-18] MEDS: FAMOTIDINE 40 MG/5 ML ORAL SUSPENSION GT SCH ×2 (11:46→21:11)
[2021-08-18] MEDS: METOPROLOL TARTRATE 25 MG TABLET (FP) GT SCH ×2 (11:46→21:11)
[2021-08-18] MEDS: THEOPHYLLINE ANHYDROUS 80 MG/15 ML GT SCH ×2 (11:46→21:10)
[2021-08-18] MEDS: buPROPion HCL 100 MG TABLET PO SCH (11:46)
[2021-08-18] MEDS: FUROSEMIDE 40 MG TABLET (FP) GT SCH (11:48)
[2021-08-18] MEDS: ACETAMINOPHEN 325 MG TABLET (FP) PO PRN (17:57)
[2021-08-18] MEDS: AMINO ACIDS/PROTEIN HYDROLYS 30 ML LIQUID.PKT GT SCH (21:10)
[2021-08-18] MEDS: MONTELUKAST NA 5 MG TAB.CHEW GT SCH (21:11)
[2021-08-18] MEDS: ATORVASTATIN CA 40 MG TABLET (FP) GT SCH (21:11)
[2021-08-19] MEDS: ALBUTEROL SO4 0.083% IH SOL 2.5 MG/3 ML VIAL.NEB. NEB PRN (03:05)
[2021-08-19] MEDS: ALPRAZolam 1 MG TABLET GT SCH ×2 (06:24→18:42)
[2021-08-19] MEDS: ALBUTEROL SO4 2.5/IPRATROPIUM 0.5 INH SOL 3 ML VIAL.NEB. NEB SCH ×4 (07:35→20:30)
[2021-08-19] MEDS: BUDESONIDE 0.5 MG/2 ML INH SUSP VIAL NEB SCH ×2 (07:35→20:30)
[2021-08-19] MEDS: AMINO ACIDS/PROTEIN HYDROLYS 30 ML LIQUID.PKT GT SCH (10:29)
[2021-08-19] MEDS: POLYETHYLENE GLYCOL (HEALTHYLAX) 3350 17 GM PACKET PEG SCH (10:29)
[2021-08-19] MEDS: METOPROLOL TARTRATE 25 MG TABLET (FP) GT SCH ×2 (10:29→22:35)
[2021-08-19] MEDS: FUROSEMIDE 40 MG TABLET (FP) GT SCH (10:30)
[2021-08-19] MEDS: APIXABAN 5 MG TABLET GT SCH ×2 (10:30→22:35)
[2021-08-19] MEDS: predniSONE 20 MG TABLET (UD) GT SCH ×2 (10:30→22:36)
[2021-08-19] MEDS: FAMOTIDINE 40 MG/5 ML ORAL SUSPENSION GT SCH ×2 (10:31→22:36)
[2021-08-19] MEDS: THEOPHYLLINE ANHYDROUS 80 MG/15 ML GT SCH ×2 (10:31→22:36)
[2021-08-19] MEDS: buPROPion HCL 100 MG TABLET PO SCH (10:32)
[2021-08-19] MEDS: MONTELUKAST NA 5 MG TAB.CHEW GT SCH (22:34)
[2021-08-19] MEDS: ATORVASTATIN CA 40 MG TABLET (FP) GT SCH (22:35)
[2021-08-20] MEDS: ALBUTEROL SO4 0.083% IH SOL 2.5 MG/3 ML VIAL.NEB. NEB PRN (03:37)
[2021-08-20] MEDS: ALPRAZolam 1 MG TABLET GT SCH ×2 (05:18→17:37)
[2021-08-20] MEDS: BUDESONIDE 0.5 MG/2 ML INH SUSP VIAL NEB SCH ×2 (07:20→20:24)
[2021-08-20] MEDS: ALBUTEROL SO4 2.5/IPRATROPIUM 0.5 INH SOL 3 ML VIAL.NEB. NEB SCH ×4 (07:20→20:25)
[2021-08-20] MEDS: AMINO ACIDS/PROTEIN HYDROLYS 30 ML LIQUID.PKT GT SCH (09:47)
[2021-08-20] MEDS: METOPROLOL TARTRATE 25 MG TABLET (FP) GT SCH ×2 (09:47→22:09)
[2021-08-20] MEDS: POLYETHYLENE GLYCOL (HEALTHYLAX) 3350 17 GM PACKET PEG SCH (09:47)
[2021-08-20] MEDS: FUROSEMIDE 40 MG TABLET (FP) GT SCH (09:48)
[2021-08-20] MEDS: APIXABAN 5 MG TABLET GT SCH ×2 (09:48→22:08)
[2021-08-20] MEDS: THEOPHYLLINE ANHYDROUS 80 MG/15 ML GT SCH ×2 (09:48→22:09)
[2021-08-20] MEDS: predniSONE 20 MG TABLET (UD) GT SCH ×2 (09:48→22:08)
[2021-08-20] MEDS: FAMOTIDINE 40 MG/5 ML ORAL SUSPENSION GT SCH ×2 (09:49→22:09)
[2021-08-20] MEDS: buPROPion HCL 100 MG TABLET PO SCH (09:49)
[2021-08-20] MEDS: MONTELUKAST NA 5 MG TAB.CHEW GT SCH (22:08)
[2021-08-20] MEDS: ATORVASTATIN CA 40 MG TABLET (FP) GT SCH (22:09)
[2021-08-21] MEDS: ALBUTEROL SO4 0.083% IH SOL 2.5 MG/3 ML VIAL.NEB. NEB PRN ×3 (01:53→07:40)
[2021-08-21] MEDS: ALPRAZolam 1 MG TABLET GT SCH ×2 (05:50→17:42)
[2021-08-21] MEDS: BUDESONIDE 0.5 MG/2 ML INH SUSP VIAL NEB SCH ×2 (07:40→20:56)
[2021-08-21] MEDS: ALBUTEROL SO4 2.5/IPRATROPIUM 0.5 INH SOL 3 ML VIAL.NEB. NEB SCH ×2 (08:26→11:35)
[2021-08-21] MEDS: APIXABAN 5 MG TABLET GT SCH ×2 (11:59→22:06)
[2021-08-21] MEDS: METOPROLOL TARTRATE 25 MG TABLET (FP) GT SCH ×2 (11:59→22:06)
[2021-08-21] MEDS: POLYETHYLENE GLYCOL (HEALTHYLAX) 3350 17 GM PACKET PEG SCH (11:59)
[2021-08-21] MEDS: FUROSEMIDE 40 MG TABLET (FP) GT SCH (11:59)
[2021-08-21] MEDS: AMINO ACIDS/PROTEIN HYDROLYS 30 ML LIQUID.PKT GT SCH (11:59)
[2021-08-21] MEDS: predniSONE 20 MG TABLET (UD) GT SCH ×2 (12:00→22:06)
[2021-08-21] MEDS: THEOPHYLLINE ANHYDROUS 80 MG/15 ML GT SCH ×2 (12:00→22:00)
[2021-08-21] MEDS: FAMOTIDINE 40 MG/5 ML ORAL SUSPENSION GT SCH ×2 (12:01→22:07)
[2021-08-21] MEDS: buPROPion HCL 100 MG TABLET PO SCH (12:01)
[2021-08-21] MEDS: ATORVASTATIN CA 40 MG TABLET (FP) GT SCH (22:06)
[2021-08-21] MEDS: MONTELUKAST NA 5 MG TAB.CHEW GT SCH (22:07)
[2021-08-22] MEDS: ALPRAZolam 1 MG TABLET GT SCH ×2 (06:39→17:20)
[2021-08-22] MEDS: BUDESONIDE 0.5 MG/2 ML INH SUSP VIAL NEB SCH ×2 (07:30→20:14)
[2021-08-22] MEDS: AMINO ACIDS/PROTEIN HYDROLYS 30 ML LIQUID.PKT GT SCH (08:40)
[2021-08-22] MEDS: METOPROLOL TARTRATE 25 MG TABLET (FP) GT SCH ×2 (10:22→22:13)
[2021-08-22] MEDS: predniSONE 20 MG TABLET (UD) GT SCH ×2 (10:24→22:14)
[2021-08-22] MEDS: APIXABAN 5 MG TABLET GT SCH ×2 (10:24→22:14)
[2021-08-22] MEDS: POLYETHYLENE GLYCOL (HEALTHYLAX) 3350 17 GM PACKET PEG SCH (10:24)
[2021-08-22] MEDS: FUROSEMIDE 40 MG TABLET (FP) GT SCH (10:25)
[2021-08-22] MEDS: THEOPHYLLINE ANHYDROUS 80 MG/15 ML GT SCH ×2 (10:25→22:15)
[2021-08-22] MEDS: FAMOTIDINE 40 MG/5 ML ORAL SUSPENSION GT SCH ×2 (10:25→22:14)
[2021-08-22] MEDS: buPROPion HCL 100 MG TABLET PO SCH (10:26)
[2021-08-22 12:28] LABS: HEMATOCRIT 38.4 % (32.4-45.2); HEMOGLOBIN 11.5 GM/dL (10.7-15.3); MCH 28.9 pg (25.7-33.7); MCHC 29.9 g/dl (32.0-36.0); MEAN CELL VOLUME 96.5 fl (80-96); MEAN PLT VOLUME 10.7 fl (7.5-11.1); PLATELET COUNT 249 10^3/uL (134-434); RBC 3.98 M/mm3 (3.60-5.2); RDW 16.5 % (11.6-15.6); WHITE BLOOD COUNT 23.5 K/mm3 (4.0-10.0)
[2021-08-22 12:39] LABS: CHLORIDE 92 mmol/L (98-107); SODIUM 141 mmol/L (136-145)
[2021-08-22 12:44] LABS: CALCIUM 9.4 mg/dL (8.5-10.1)
[2021-08-22 12:45] LABS: ALBUMIN 3.1 g/dl (3.4-5.0); BLOOD UREA NITROGEN 42.7 mg/dL (7-18); GLUCOSE,RANDOM 108 mg/dL (74-106); MAGNESIUM 2.9 mg/dL (1.8-2.4)
[2021-08-22 12:47] LABS: SGPT/ALT 44 U/L (13-61)
[2021-08-22 12:48] LABS: CREATININE 0.6 mg/dL (0.55-1.3); SGOT/AST 17 U/L (15-37)
[2021-08-22 12:49] LABS: BILIRUBIN,TOTAL 0.2 mg/dL (0.2-1); TOT PROT 6.5 g/dl (6.4-8.2)
[2021-08-22 12:50] LABS: ALK PHOS 78 U/L (45-117)
[2021-08-22 13:08] LABS: ANION GAP 4 MMOL/L (8-16); CO2 > 45 mmol/L (21-32)
[2021-08-22 16:00] LABS: EPI CELLS 11 /uL (0-25.1); HYALINE CASTS 1 /uL (0-3.1); URINE APPEARANCE CLEAR; URINE BACTERIA 10 /uL (0-1359); URINE BILIRUBIN NEGATIVE (NEGATIVE); URINE COLOR YELLOW; URINE GLUCOSE (UA) NEGATIVE (NEGATIVE); URINE KETONE NEGATIVE (NEGATIVE); URINE LEUK ESTERASE TRACE (NEGATIVE); URINE NITRITE NEGATIVE (NEGATIVE); URINE PROTEIN NEGATIVE (NEGATIVE); URINE RBC 10 /uL (0-23.9); URINE UROBILINOGEN 0.2 mg/dL (0.2-1.0); URINE WBC 16 /uL (0-25.8)
[2021-08-22] MEDS: MONTELUKAST NA 5 MG TAB.CHEW GT SCH (22:14)
[2021-08-22] MEDS: ATORVASTATIN CA 40 MG TABLET (FP) GT SCH (22:14)
[2021-08-23] MEDS: ALBUTEROL SO4 2.5/IPRATROPIUM 0.5 INH SOL 3 ML VIAL.NEB. NEB PRN ×2 (02:55→12:21)
[2021-08-23] MEDS: ALPRAZolam 1 MG TABLET GT SCH ×3 (06:12→22:39)
[2021-08-23] MEDS: BUDESONIDE 0.5 MG/2 ML INH SUSP VIAL NEB SCH (07:30)
[2021-08-23 08:52] LABS: HEMATOCRIT 35.9 % (32.4-45.2); MCH 29.4 pg (25.7-33.7); MCHC 30.5 g/dl (32.0-36.0); MEAN CELL VOLUME 96.3 fl (80-96); MEAN PLT VOLUME 9.1 fl (7.5-11.1); PLATELET COUNT 236 10^3/uL (134-434); RBC 3.73 M/mm3 (3.60-5.2); RDW 16.8 % (11.6-15.6); WHITE BLOOD COUNT 21.7 K/mm3 (4.0-10.0)
[2021-08-23 09:10] LABS: CHLORIDE 91 mmol/L (98-107); SODIUM 143 mmol/L (136-145)
[2021-08-23 09:12] LABS: CALCIUM 9.1 mg/dL (8.5-10.1)
[2021-08-23 09:13] LABS: BLOOD UREA NITROGEN 45.9 mg/dL (7-18); GLUCOSE,RANDOM 121 mg/dL (74-106)
[2021-08-23 09:16] LABS: CREATININE 0.5 mg/dL (0.55-1.3); SGOT/AST 19 U/L (15-37); SGPT/ALT 45 U/L (13-61)
[2021-08-23 09:18] LABS: BILIRUBIN,TOTAL 0.4 mg/dL (0.2-1)
[2021-08-23 09:19] LABS: ALK PHOS 79 U/L (45-117)
[2021-08-23 09:32] LABS: ANION GAP 6 MMOL/L (8-16); CO2 > 45 mmol/L (21-32)
[2021-08-23 10:35] LABS: ANISOCYTOSIS 0; HELMET CELLS 0; HOWELL-JOLLY BODIES 0; MACROCYTOSIS 0; OVALOCYTE 0; ROULEAU 0; SICKELED CELLS 0; TARGET CELLS 0; TEAR DROP CELLS 0; TOXIC GRANULATION 0
[2021-08-23] MEDS: AMINO ACIDS/PROTEIN HYDROLYS 30 ML LIQUID.PKT GT SCH (11:21)
[2021-08-23] MEDS: METOPROLOL TARTRATE 25 MG TABLET (FP) GT SCH ×2 (11:21→22:28)
[2021-08-23] MEDS: FUROSEMIDE 40 MG TABLET (FP) GT SCH (11:21)
[2021-08-23] MEDS: predniSONE 20 MG TABLET (UD) GT SCH ×2 (11:22→22:28)
[2021-08-23] MEDS: FAMOTIDINE 40 MG/5 ML ORAL SUSPENSION GT SCH ×2 (11:22→22:40)
[2021-08-23] MEDS: POLYETHYLENE GLYCOL (HEALTHYLAX) 3350 17 GM PACKET PEG SCH (11:22)
[2021-08-23] MEDS: APIXABAN 5 MG TABLET GT SCH ×2 (11:22→22:28)
[2021-08-23] MEDS: THEOPHYLLINE ANHYDROUS 80 MG/15 ML GT SCH ×2 (11:23→22:39)
[2021-08-23] MEDS: buPROPion HCL 100 MG TABLET PO SCH (11:24)
[2021-08-23 12:18] LABS: ARTERIAL BLD GAS O2 SATURATION 90.9 % (95-98); ARTERIAL BLOOD GAS BASE EXCESS 24.3 mmol/L (-2-2); ARTERIAL BLOOD GAS PO2 72.3 mmHg (80-100); ARTERIAL BLOOD GAS pH 7.291 (7.350-7.450)
[2021-08-23 12:19] LABS: ALLENS TEST POSITIVE
[2021-08-23] MEDS ORDERED: DEXTROSE 50%-WATER - 25 GM/50 ML VIAL IVPUSH ONE (12:24)
[2021-08-23] MEDS ORDERED: DEXTROSE 50%-WATER 25 GM/50 ML DISP.SYRIN ONE (12:25)
[2021-08-23] MEDS ORDERED: VANCOMYCIN/WATER FOR INJ (PEG) 1,000 MG/200 ML BAG IVPB ONE (13:46)
[2021-08-23] MEDS ORDERED: DEXTROSE 5%-WATER - 50 ML IVPB ONE ×2 (14:32→17:47)
[2021-08-23] MEDS ORDERED: PIPERACILLIN/TAZOBACTAM 3.375 GM VIAL IVPB ONE ×2 (14:32→17:47)
[2021-08-23] MEDS: PIPERACILLIN/TAZOB 3.375 GM 3.375 GM in DEXTROSE 5%-WATER - 50 ML IVPB SCH ×2 (14:43→18:18)
[2021-08-23 14:53] LABS: HEMATOCRIT 33.5 % (32.4-45.2); HEMOGLOBIN 10.2 GM/dL (10.7-15.3); MCH 29.3 pg (25.7-33.7); MCHC 30.6 g/dl (32.0-36.0); MEAN CELL VOLUME 95.6 fl (80-96); MEAN PLT VOLUME 9.3 fl (7.5-11.1); PLATELET COUNT 237 10^3/uL (134-434); RDW 16.4 % (11.6-15.6); WHITE BLOOD COUNT 18.2 K/mm3 (4.0-10.0)
[2021-08-23 15:14] LABS: CHLORIDE 89 mmol/L (98-107); SODIUM 139 mmol/L (136-145)
[2021-08-23 15:16] LABS: ALBUMIN 2.7 g/dl (3.4-5.0); CALCIUM 8.7 mg/dL (8.5-10.1); GLUCOSE,RANDOM 178 mg/dL (74-106)
[2021-08-23 15:19] LABS: CREATININE 0.6 mg/dL (0.55-1.3); SGOT/AST 16 U/L (15-37); SGPT/ALT 38 U/L (13-61)
[2021-08-23 15:21] LABS: BILIRUBIN,TOTAL 0.4 mg/dL (0.2-1); TOT PROT 5.5 g/dl (6.4-8.2)
[2021-08-23 15:21] LABS: ARTERIAL BLD GAS O2 SATURATION 97.1 % (95-98); ARTERIAL BLOOD GAS BASE EXCESS 23.1 mmol/L (-2-2); ARTERIAL BLOOD GAS PO2 90.1 mmHg (80-100); ARTERIAL BLOOD GAS pH 7.489 (7.350-7.450)
[2021-08-23 15:22] LABS: ALK PHOS 70 U/L (45-117)
[2021-08-23 15:24] LABS: ALLENS TEST POSITIVE
[2021-08-23 15:25] LABS: PT'S TEMP 98.2; VENT MODE A/C; VENT RATE 20
[2021-08-23 15:26] LABS: ANION GAP 5 MMOL/L (8-16); CO2 > 45 mmol/L (21-32); LACTIC ACID 3.7 mmol/L (0.4-2.0)
[2021-08-23 15:54] LABS: ANISOCYTOSIS 0; MACROCYTOSIS 0
[2021-08-23 20:13] LABS: ARTERIAL BLD GAS O2 SATURATION 95.4 % (95-98); ARTERIAL BLOOD GAS BASE EXCESS 20.1 mmol/L (-2-2); ARTERIAL BLOOD GAS PO2 79.3 mmHg (80-100); ARTERIAL BLOOD GAS pH 7.429 (7.350-7.450)
[2021-08-23 20:15] LABS: VENT MODE PSV; VENT RATE 12
[2021-08-23] MEDS ORDERED: DEXTROSE 5%-0.45% SALINE 1,000 ML IV SCH (21:30)
[2021-08-23] MEDS: ATORVASTATIN CA 40 MG TABLET (FP) GT SCH (22:28)
[2021-08-23] MEDS: DEXTROSE 10%-WATER - 1,000 ML IV SCH (22:29)
[2021-08-23] MEDS: MONTELUKAST NA 5 MG TAB.CHEW GT SCH (22:40)
[2021-08-23 23:04] LABS: VENOUS O2 SATURATION 64.2 % (70-80); VENOUS PH 7.377 (7.310-7.410)
[2021-08-23 23:05] LABS: VENOUS PCO2 91.6 mmHg (38-52)
[2021-08-24] MEDS ORDERED: DEXTROSE 5%-WATER - 50 ML IVPB ONE ×3 (00:13→17:45)
[2021-08-24] MEDS ORDERED: PIPERACILLIN/TAZOBACTAM 3.375 GM VIAL IVPB ONE ×3 (00:13→17:45)
[2021-08-24] MEDS ORDERED: DEXTROSE 50%-WATER - 25 GM/50 ML VIAL IVPUSH ONE (00:15)
[2021-08-24] MEDS ORDERED: DEXTROSE 50%-WATER - 25 GM/50 ML VIAL IVPUSH PRN (00:19)
[2021-08-24] MEDS ORDERED: DEXTROSE 50%-WATER 25 GM/50 ML DISP.SYRIN ONE (00:20)
[2021-08-24] MEDS: PIPERACILLIN/TAZOB 3.375 GM 3.375 GM in DEXTROSE 5%-WATER - 50 ML IVPB SCH ×3 (01:00→17:55)
[2021-08-24] MEDS: ACETAMINOPHEN 325 MG TABLET (FP) PO PRN (01:01)
[2021-08-24] MEDS: BUDESONIDE 0.5 MG/2 ML INH SUSP VIAL NEB SCH ×3 (02:15→20:14)
[2021-08-24] MEDS: ALPRAZolam 1 MG TABLET GT SCH ×2 (06:33→17:56)
[2021-08-24 06:45] LABS: ALLENS TEST POSITIVE; ARTERIAL BLD GAS O2 SATURATION 97.6 % (95-98); ARTERIAL BLOOD GAS BASE EXCESS 22.1 mmol/L (-2-2); ARTERIAL BLOOD GAS PO2 93.3 mmHg (80-100); ARTERIAL BLOOD GAS pH 7.524 (7.350-7.450)
[2021-08-24 06:46] LABS: VENT MODE A/C; VENT RATE 20
[2021-08-24 06:47] LABS: HEMATOCRIT 30.6 % (32.4-45.2); HEMOGLOBIN 9.4 GM/dL (10.7-15.3); MCHC 30.8 g/dl (32.0-36.0); MEAN CELL VOLUME 94.2 fl (80-96); MEAN PLT VOLUME 9.9 fl (7.5-11.1); PLATELET COUNT 211 10^3/uL (134-434); RBC 3.25 M/mm3 (3.60-5.2); RDW 16.6 % (11.6-15.6); WHITE BLOOD COUNT 15.1 K/mm3 (4.0-10.0)
[2021-08-24 07:08] LABS: CALCIUM 8.4 mg/dL (8.5-10.1)
[2021-08-24 07:09] LABS: ALBUMIN 2.6 g/dl (3.4-5.0); BLOOD UREA NITROGEN 49.8 mg/dL (7-18); MAGNESIUM 2.5 mg/dL (1.8-2.4)
[2021-08-24 07:12] LABS: CREATININE 0.7 mg/dL (0.55-1.3)
[2021-08-24 07:13] LABS: BILIRUBIN,TOTAL 0.7 mg/dL (0.2-1); TOT PROT 5.4 g/dl (6.4-8.2)
[2021-08-24] MEDS: AMINO ACIDS/PROTEIN HYDROLYS 30 ML LIQUID.PKT GT SCH (08:55)
[2021-08-24] MEDS: predniSONE 20 MG TABLET (UD) GT SCH ×2 (09:00→22:31)
[2021-08-24] MEDS: FUROSEMIDE 40 MG TABLET (FP) GT SCH (09:01)
[2021-08-24] MEDS: APIXABAN 5 MG TABLET GT SCH ×2 (09:01→22:31)
[2021-08-24] MEDS: METOPROLOL TARTRATE 25 MG TABLET (FP) GT SCH ×2 (09:01→22:31)
[2021-08-24] MEDS: POLYETHYLENE GLYCOL (HEALTHYLAX) 3350 17 GM PACKET PEG SCH (09:01)
[2021-08-24] MEDS: FAMOTIDINE 40 MG/5 ML ORAL SUSPENSION GT SCH ×2 (09:02→22:30)
[2021-08-24] MEDS: THEOPHYLLINE ANHYDROUS 80 MG/15 ML GT SCH ×2 (09:03→22:32)
[2021-08-24] MEDS: buPROPion HCL 100 MG TABLET PO SCH (09:04)
[2021-08-24 09:13] LABS: ANISOCYTOSIS 2+; MACROCYTOSIS 0; OVALOCYTE 2+
[2021-08-24] MEDS: VANCOMYCIN/WATER FOR INJ (PEG) 1,000 MG/200 ML BAG IVPB SCH ×2 (10:25→22:31)
[2021-08-24] MEDS: ALBUTEROL SO4 2.5/IPRATROPIUM 0.5 INH SOL 3 ML VIAL.NEB. NEB PRN ×2 (11:32→22:07)
[2021-08-24 12:06] LABS: ALLENS TEST POSITIVE; ARTERIAL BLD GAS O2 SATURATION 96.5 % (95-98); ARTERIAL BLOOD GAS BASE EXCESS 14.9 mmol/L (-2-2); ARTERIAL BLOOD GAS PO2 90.4 mmHg (80-100); ARTERIAL BLOOD GAS pH 7.397 (7.350-7.450)
[2021-08-24 12:07] LABS: PT'S TEMP 98.1
[2021-08-24] MEDS: DEXTROSE 10%-WATER - 1,000 ML IV SCH (22:31)
[2021-08-24] MEDS: ATORVASTATIN CA 40 MG TABLET (FP) GT SCH (22:31)
[2021-08-24] MEDS: MONTELUKAST NA 5 MG TAB.CHEW GT SCH (22:31)
[2021-08-24] MEDS: MELATONIN 5 MG TABLETS PO SCH (22:32)
[2021-08-24] MEDS ORDERED: MELATONIN 5 MG TABLETS NR SCH (22:51)
[2021-08-25] MEDS ORDERED: DEXTROSE 5%-WATER - 50 ML IVPB ONE ×3 (01:54→17:41)
[2021-08-25] MEDS ORDERED: PIPERACILLIN/TAZOBACTAM 3.375 GM VIAL IVPB ONE ×3 (01:54→17:41)
[2021-08-25] MEDS: PIPERACILLIN/TAZOB 3.375 GM 3.375 GM in DEXTROSE 5%-WATER - 50 ML IVPB SCH ×3 (01:56→17:43)
[2021-08-25] MEDS: ALPRAZolam 1 MG TABLET GT SCH ×2 (05:35→17:42)
[2021-08-25 08:01] LABS: HEMATOCRIT 32.5 % (32.4-45.2); HEMOGLOBIN 10.3 GM/dL (10.7-15.3); MCH 29.9 pg (25.7-33.7); MCHC 31.6 g/dl (32.0-36.0); MEAN CELL VOLUME 94.9 fl (80-96); PLATELET COUNT 199 10^3/uL (134-434); RBC 3.43 M/mm3 (3.60-5.2); RDW 16.9 % (11.6-15.6); WHITE BLOOD COUNT 13.3 K/mm3 (4.0-10.0)
[2021-08-25] MEDS: AMINO ACIDS/PROTEIN HYDROLYS 30 ML LIQUID.PKT GT SCH ×2 (08:06→17:43)
[2021-08-25 08:17] LABS: CALCIUM 8.5 mg/dL (8.5-10.1)
[2021-08-25 08:18] LABS: ALBUMIN 2.6 g/dl (3.4-5.0); MAGNESIUM 2.6 mg/dL (1.8-2.4)
[2021-08-25 08:21] LABS: CREATININE 0.9 mg/dL (0.55-1.3); PHOSPHOROUS 3.7 mg/dL (2.5-4.9)
[2021-08-25 08:22] LABS: BILIRUBIN,TOTAL 0.4 mg/dL (0.2-1); TOT PROT 5.4 g/dl (6.4-8.2)
[2021-08-25] MEDS: BUDESONIDE 0.5 MG/2 ML INH SUSP VIAL NEB SCH ×2 (08:37→20:28)
[2021-08-25 09:03] LABS: ANISOCYTOSIS 0; HELMET CELLS 0; HOWELL-JOLLY BODIES 0; MACROCYTOSIS 0; OVALOCYTE 0; ROULEAU 0; SICKELED CELLS 0; TARGET CELLS 0; TEAR DROP CELLS 0; TOXIC GRANULATION 0
[2021-08-25] MEDS: predniSONE 20 MG TABLET (UD) GT SCH ×2 (09:16→22:13)
[2021-08-25] MEDS: POLYETHYLENE GLYCOL (HEALTHYLAX) 3350 17 GM PACKET PEG SCH (09:17)
[2021-08-25] MEDS: METOPROLOL TARTRATE 25 MG TABLET (FP) GT SCH ×2 (09:17→22:13)
[2021-08-25] MEDS: APIXABAN 5 MG TABLET GT SCH ×2 (09:17→22:13)
[2021-08-25] MEDS: FAMOTIDINE 40 MG/5 ML ORAL SUSPENSION GT SCH ×2 (09:19→22:13)
[2021-08-25] MEDS: THEOPHYLLINE ANHYDROUS 80 MG/15 ML GT SCH ×2 (09:20→22:13)
[2021-08-25] MEDS: buPROPion HCL 100 MG TABLET PO SCH (09:21)
[2021-08-25] MEDS: VANCOMYCIN/WATER FOR INJ (PEG) 1,000 MG/200 ML BAG IVPB SCH ×2 (10:52→23:45)
[2021-08-25] MEDS: ALBUTEROL SO4 2.5/IPRATROPIUM 0.5 INH SOL 3 ML VIAL.NEB. NEB PRN (14:43)
[2021-08-25] MEDS: DEXTROSE 10%-WATER - 1,000 ML IV SCH (21:32)
[2021-08-25] MEDS: ATORVASTATIN CA 40 MG TABLET (FP) GT SCH (22:13)
[2021-08-25] MEDS: MONTELUKAST NA 5 MG TAB.CHEW GT SCH (22:13)
[2021-08-25] MEDS: MELATONIN 5 MG TABLETS PO SCH (22:13)
[2021-08-26] MEDS ORDERED: PIPERACILLIN/TAZOBACTAM 3.375 GM VIAL IVPB ONE ×4 (02:21→17:17)
[2021-08-26] MEDS ORDERED: DEXTROSE 5%-WATER - 50 ML IVPB ONE ×3 (02:21→17:17)
[2021-08-26] MEDS: PIPERACILLIN/TAZOB 3.375 GM 3.375 GM in DEXTROSE 5%-WATER - 50 ML IVPB SCH ×3 (02:34→18:12)
[2021-08-26] MEDS: ALPRAZolam 1 MG TABLET GT SCH ×2 (06:15→18:12)
[2021-08-26 06:37] LABS: BASO % 0.1 % (0-2.0); HEMATOCRIT 29.3 % (32.4-45.2); HEMOGLOBIN 9.1 GM/dL (10.7-15.3); LYMPH % 6.3 % (8-40); MCH 29.6 pg (25.7-33.7); MCHC 31.1 g/dl (32.0-36.0); MEAN CELL VOLUME 95.1 fl (80-96); MONO % 3.9 % (3.8-10.2); NEUT % 89.7 % (42.8-82.8); PLATELET COUNT 173 10^3/uL (134-434); RBC 3.08 M/mm3 (3.60-5.2); RDW 17.4 % (11.6-15.6); WHITE BLOOD COUNT 14.4 K/mm3 (4.0-10.0)
[2021-08-26 07:12] LABS: ALBUMIN 2.4 g/dl (3.4-5.0); BLOOD UREA NITROGEN 38.6 mg/dL (7-18)
[2021-08-26 07:15] LABS: CREATININE 0.7 mg/dL (0.55-1.3)
[2021-08-26 07:17] LABS: BILIRUBIN,TOTAL 0.4 mg/dL (0.2-1); TOT PROT 4.9 g/dl (6.4-8.2)
[2021-08-26] MEDS: BUDESONIDE 0.5 MG/2 ML INH SUSP VIAL NEB SCH ×2 (08:29→19:25)
[2021-08-26] MEDS: AMINO ACIDS/PROTEIN HYDROLYS 30 ML LIQUID.PKT GT SCH ×2 (10:16→18:12)
[2021-08-26] MEDS: POLYETHYLENE GLYCOL (HEALTHYLAX) 3350 17 GM PACKET PEG SCH (10:16)
[2021-08-26] MEDS: predniSONE 20 MG TABLET (UD) GT SCH ×2 (10:16→21:54)
[2021-08-26] MEDS: METOPROLOL TARTRATE 25 MG TABLET (FP) GT SCH ×2 (10:18→21:54)
[2021-08-26] MEDS: APIXABAN 5 MG TABLET GT SCH ×2 (10:18→21:54)
[2021-08-26] MEDS: FAMOTIDINE 40 MG/5 ML ORAL SUSPENSION GT SCH ×2 (10:19→21:53)
[2021-08-26] MEDS: THEOPHYLLINE ANHYDROUS 80 MG/15 ML GT SCH ×2 (10:19→21:53)
[2021-08-26] MEDS: buPROPion HCL 100 MG TABLET PO SCH (10:20)
[2021-08-26] MEDS: VANCOMYCIN/WATER FOR INJ (PEG) 1,000 MG/200 ML BAG IVPB SCH (12:51)
[2021-08-26] MEDS: VANCOMYCIN 1 GRAM (PRE-DOCKED) 1,000 MG/250 ML BAG IVPB SCH ×2 (13:08→22:37)
[2021-08-26] MEDS: MELATONIN 5 MG TABLETS PO SCH (21:53)
[2021-08-26] MEDS: ATORVASTATIN CA 40 MG TABLET (FP) GT SCH (21:54)
[2021-08-26] MEDS: MONTELUKAST NA 5 MG TAB.CHEW GT SCH (21:55)
[2021-08-26] MEDS: DEXTROSE 10%-WATER - 1,000 ML IV SCH (22:38)
[2021-08-27] MEDS ORDERED: DEXTROSE 5%-WATER - 50 ML IVPB ONE ×2 (00:09→09:25)
[2021-08-27] MEDS ORDERED: PIPERACILLIN/TAZOBACTAM 3.375 GM VIAL IVPB ONE ×2 (00:09→09:25)
[2021-08-27] MEDS: PIPERACILLIN/TAZOB 3.375 GM 3.375 GM in DEXTROSE 5%-WATER - 50 ML IVPB SCH ×2 (02:38→09:31)
[2021-08-27] MEDS: ALPRAZolam 1 MG TABLET GT SCH ×2 (06:48→17:36)
[2021-08-27] MEDS: BUDESONIDE 0.5 MG/2 ML INH SUSP VIAL NEB SCH ×2 (07:01→20:45)
[2021-08-27] MEDS: THEOPHYLLINE ANHYDROUS 80 MG/15 ML GT SCH ×2 (09:30→22:53)
[2021-08-27] MEDS: AMINO ACIDS/PROTEIN HYDROLYS 30 ML LIQUID.PKT GT SCH ×2 (09:30→17:24)
[2021-08-27] MEDS: POLYETHYLENE GLYCOL (HEALTHYLAX) 3350 17 GM PACKET PEG SCH (09:30)
[2021-08-27] MEDS: predniSONE 20 MG TABLET (UD) GT SCH ×2 (09:31→22:53)
[2021-08-27] MEDS: FAMOTIDINE 40 MG/5 ML ORAL SUSPENSION GT SCH ×2 (09:32→22:53)
[2021-08-27] MEDS: buPROPion HCL 100 MG TABLET PO SCH (09:32)
[2021-08-27] MEDS: METOPROLOL TARTRATE 25 MG TABLET (FP) GT SCH ×2 (09:32→22:51)
[2021-08-27] MEDS: APIXABAN 5 MG TABLET GT SCH ×2 (09:32→22:51)
[2021-08-27] MEDS: VANCOMYCIN 1 GRAM (PRE-DOCKED) 1,000 MG/250 ML BAG IVPB SCH (10:42)
[2021-08-27] MEDS: ALBUTEROL SO4 2.5/IPRATROPIUM 0.5 INH SOL 3 ML VIAL.NEB. NEB PRN (10:47)
[2021-08-27 13:44] VITALS: BMI 25.2
[2021-08-27] MEDS ORDERED: DEXTROSE 5%-WATER 100 ML IVPB ONE (14:01)
[2021-08-27] MEDS: CEFTRIAXONE 2 GM in DEXTROSE 5%-WATER 2 GM/100 ML BAG IVPB SCH (14:08)
[2021-08-27] MEDS ORDERED: ALBUTEROL SO4 2.5/IPRATROPIUM 0.5 INH SOL 3 ML VIAL.NEB. NEB PRN (15:20)
[2021-08-27] MEDS ORDERED: BACITRACIN 15 GM TUBE TOPICAL OINTMENT TP PRN (15:29)
[2021-08-27] MEDS: BACITRACIN 15 GM TUBE TOPICAL OINTMENT TP SCH (17:24)
[2021-08-27] MEDS ORDERED: DEXTROSE 50%-WATER - 25 GM/50 ML VIAL IVPUSH PRN (21:47)
[2021-08-27] MEDS ORDERED: ACETAMINOPHEN 325 MG TABLET (FP) PO PRN (21:47)
[2021-08-27] MEDS: DEXTROSE 10%-WATER - 1,000 ML IV SCH (22:38)
[2021-08-27] MEDS: ATORVASTATIN CA 40 MG TABLET (FP) GT SCH (22:51)
[2021-08-27] MEDS: MELATONIN 5 MG TABLETS PO SCH (22:51)
[2021-08-27] MEDS: MONTELUKAST NA 5 MG TAB.CHEW GT SCH (22:53)
[2021-08-28] MEDS: ALPRAZolam 1 MG TABLET GT SCH ×2 (06:29→17:39)
[2021-08-28] MEDS: BUDESONIDE 0.5 MG/2 ML INH SUSP VIAL NEB SCH ×2 (07:49→20:05)
[2021-08-28 09:07] LABS: EOS % 0.1 % (0-4.5); HEMATOCRIT 30.5 % (32.4-45.2); HEMOGLOBIN 9.6 GM/dL (10.7-15.3); LYMPH % 7.4 % (8-40); MCH 30.5 pg (25.7-33.7); MCHC 31.5 g/dl (32.0-36.0); MEAN CELL VOLUME 97.1 fl (80-96); MEAN PLT VOLUME 9.5 fl (7.5-11.1); MONO % 4.3 % (3.8-10.2); NEUT % 88.2 % (42.8-82.8); PLATELET COUNT 172 10^3/uL (134-434); RBC 3.15 M/mm3 (3.60-5.2); RDW 17.5 % (11.6-15.6); WHITE BLOOD COUNT 9.4 K/mm3 (4.0-10.0)
[2021-08-28 09:34] LABS: CALCIUM 8.6 mg/dL (8.5-10.1)
[2021-08-28 09:35] LABS: ALBUMIN 2.6 g/dl (3.4-5.0); BLOOD UREA NITROGEN 30.3 mg/dL (7-18)
[2021-08-28 09:37] LABS: CREATININE 0.5 mg/dL (0.55-1.3)
[2021-08-28 09:38] LABS: BILIRUBIN,TOTAL 0.4 mg/dL (0.2-1)
[2021-08-28 09:39] LABS: TOT PROT 5.2 g/dl (6.4-8.2)
[2021-08-28] MEDS ORDERED: DEXTROSE 5%-WATER 100 ML IVPB ONE (09:41)
[2021-08-28] MEDS: BACITRACIN 15 GM TUBE TOPICAL OINTMENT TP SCH (10:11)
[2021-08-28] MEDS: AMINO ACIDS/PROTEIN HYDROLYS 30 ML LIQUID.PKT GT SCH ×2 (10:11→17:39)
[2021-08-28] MEDS: APIXABAN 5 MG TABLET GT SCH ×2 (10:12→21:40)
[2021-08-28] MEDS: predniSONE 20 MG TABLET (UD) GT SCH ×2 (10:12→21:41)
[2021-08-28] MEDS: POLYETHYLENE GLYCOL (HEALTHYLAX) 3350 17 GM PACKET PEG SCH (10:12)
[2021-08-28] MEDS: METOPROLOL TARTRATE 25 MG TABLET (FP) GT SCH ×2 (10:12→21:41)
[2021-08-28] MEDS: FAMOTIDINE 40 MG/5 ML ORAL SUSPENSION GT SCH ×2 (10:13→21:42)
[2021-08-28] MEDS: CEFTRIAXONE 2 GM in DEXTROSE 5%-WATER 2 GM/100 ML BAG IVPB SCH (10:15)
[2021-08-28] MEDS: THEOPHYLLINE ANHYDROUS 80 MG/15 ML GT SCH ×2 (10:15→21:43)
[2021-08-28] MEDS: buPROPion HCL 100 MG TABLET PO SCH (10:15)
[2021-08-28] MEDS: DEXTROSE 10%-WATER - 1,000 ML IV SCH ×2 (10:32→18:44)
[2021-08-28] MEDS: ALBUTEROL SO4 2.5/IPRATROPIUM 0.5 INH SOL 3 ML VIAL.NEB. NEB PRN (16:05)
[2021-08-28] MEDS: ATORVASTATIN CA 40 MG TABLET (FP) GT SCH (21:41)
[2021-08-28] MEDS: MELATONIN 5 MG TABLETS PO SCH (21:41)
[2021-08-28] MEDS: MONTELUKAST NA 5 MG TAB.CHEW GT SCH (21:42)
[2021-08-29] MEDS: ALPRAZolam 1 MG TABLET GT SCH ×2 (05:35→18:11)
[2021-08-29] MEDS: BUDESONIDE 0.5 MG/2 ML INH SUSP VIAL NEB SCH ×2 (08:29→20:11)
[2021-08-29] MEDS ORDERED: DEXTROSE 5%-WATER 100 ML IVPB ONE (11:22)
[2021-08-29] MEDS: CEFTRIAXONE 2 GM in DEXTROSE 5%-WATER 2 GM/100 ML BAG IVPB SCH (11:27)
[2021-08-29] MEDS: BACITRACIN 15 GM TUBE TOPICAL OINTMENT TP SCH (11:28)
[2021-08-29] MEDS: AMINO ACIDS/PROTEIN HYDROLYS 30 ML LIQUID.PKT GT SCH ×2 (11:28→18:11)
[2021-08-29] MEDS: buPROPion HCL 100 MG TABLET PO SCH (11:29)
[2021-08-29] MEDS: POLYETHYLENE GLYCOL (HEALTHYLAX) 3350 17 GM PACKET PEG SCH (11:29)
[2021-08-29] MEDS: APIXABAN 5 MG TABLET GT SCH ×2 (11:30→21:37)
[2021-08-29] MEDS: predniSONE 20 MG TABLET (UD) GT SCH ×2 (11:30→21:37)
[2021-08-29] MEDS: METOPROLOL TARTRATE 25 MG TABLET (FP) GT SCH ×2 (11:30→21:37)
[2021-08-29] MEDS: FAMOTIDINE 40 MG/5 ML ORAL SUSPENSION GT SCH ×2 (11:31→21:38)
[2021-08-29] MEDS: THEOPHYLLINE ANHYDROUS 80 MG/15 ML GT SCH ×2 (11:32→21:39)
[2021-08-29] MEDS: ALBUTEROL SO4 2.5/IPRATROPIUM 0.5 INH SOL 3 ML VIAL.NEB. NEB PRN (17:19)
[2021-08-29] MEDS: ATORVASTATIN CA 40 MG TABLET (FP) GT SCH (21:37)
[2021-08-29] MEDS: MELATONIN 5 MG TABLETS PO SCH (21:38)
[2021-08-29] MEDS: MONTELUKAST NA 5 MG TAB.CHEW GT SCH (21:39)
[2021-08-30] MEDS: ALPRAZolam 1 MG TABLET GT SCH ×2 (05:43→18:39)
[2021-08-30] MEDS: BUDESONIDE 0.5 MG/2 ML INH SUSP VIAL NEB SCH ×2 (08:06→20:38)
[2021-08-30] MEDS ORDERED: DEXTROSE 5%-WATER 100 ML IVPB ONE (09:18)
[2021-08-30] MEDS: METOPROLOL TARTRATE 25 MG TABLET (FP) GT SCH ×2 (09:26→23:07)
[2021-08-30] MEDS: POLYETHYLENE GLYCOL (HEALTHYLAX) 3350 17 GM PACKET PEG SCH (09:26)
[2021-08-30] MEDS: CEFTRIAXONE 2 GM in DEXTROSE 5%-WATER 2 GM/100 ML BAG IVPB SCH (09:26)
[2021-08-30] MEDS: BACITRACIN 15 GM TUBE TOPICAL OINTMENT TP SCH (09:27)
[2021-08-30] MEDS: APIXABAN 5 MG TABLET GT SCH ×2 (09:27→23:07)
[2021-08-30] MEDS: predniSONE 20 MG TABLET (UD) GT SCH ×2 (09:27→23:07)
[2021-08-30] MEDS: THEOPHYLLINE ANHYDROUS 80 MG/15 ML GT SCH ×2 (09:28→23:08)
[2021-08-30] MEDS: FAMOTIDINE 40 MG/5 ML ORAL SUSPENSION GT SCH ×2 (09:28→23:08)
[2021-08-30] MEDS: buPROPion HCL 100 MG TABLET PO SCH (09:31)
[2021-08-30] MEDS: AMINO ACIDS/PROTEIN HYDROLYS 30 ML LIQUID.PKT GT SCH ×2 (09:31→18:39)
[2021-08-30] MEDS: DEXTROSE 10%-WATER - 1,000 ML IV SCH ×2 (12:57→23:51)
[2021-08-30] MEDS: ALBUTEROL SO4 2.5/IPRATROPIUM 0.5 INH SOL 3 ML VIAL.NEB. NEB PRN (14:59)
[2021-08-30] MEDS: ATORVASTATIN CA 40 MG TABLET (FP) GT SCH (23:07)
[2021-08-30] MEDS: MELATONIN 5 MG TABLETS PO SCH (23:07)
[2021-08-30] MEDS: MONTELUKAST NA 5 MG TAB.CHEW GT SCH (23:08)
[2021-08-31] MEDS: ALPRAZolam 1 MG TABLET GT SCH ×2 (05:22→18:11)
[2021-08-31] MEDS: BUDESONIDE 0.5 MG/2 ML INH SUSP VIAL NEB SCH ×2 (07:38→20:25)
[2021-08-31 10:24] LABS: HEMATOCRIT 32.3 % (32.4-45.2); HEMOGLOBIN 10.1 GM/dL (10.7-15.3); MCH 30.3 pg (25.7-33.7); MCHC 31.2 g/dl (32.0-36.0); MEAN CELL VOLUME 97.2 fl (80-96); MEAN PLT VOLUME 10.2 fl (7.5-11.1); PLATELET COUNT 200 10^3/uL (134-434); RBC 3.32 M/mm3 (3.60-5.2); RDW 17.4 % (11.6-15.6); WHITE BLOOD COUNT 10.5 K/mm3 (4.0-10.0)
[2021-08-31 10:45] LABS: ALBUMIN 2.7 g/dl (3.4-5.0); BLOOD UREA NITROGEN 29.5 mg/dL (7-18); CALCIUM 8.5 mg/dL (8.5-10.1)
[2021-08-31 10:48] LABS: CREATININE 0.5 mg/dL (0.55-1.3)
[2021-08-31 10:50] LABS: BILIRUBIN,TOTAL 0.9 mg/dL (0.2-1); TOT PROT 5.6 g/dl (6.4-8.2)
[2021-08-31] MEDS ORDERED: DEXTROSE 5%-WATER 100 ML IVPB ONE (11:11)
[2021-08-31] MEDS: METOPROLOL TARTRATE 25 MG TABLET (FP) GT SCH ×2 (11:13→22:55)
[2021-08-31] MEDS: CEFTRIAXONE 2 GM in DEXTROSE 5%-WATER 2 GM/100 ML BAG IVPB SCH (11:13)
[2021-08-31] MEDS: POLYETHYLENE GLYCOL (HEALTHYLAX) 3350 17 GM PACKET PEG SCH (11:14)
[2021-08-31] MEDS: AMINO ACIDS/PROTEIN HYDROLYS 30 ML LIQUID.PKT GT SCH ×2 (11:14→18:11)
[2021-08-31] MEDS: predniSONE 20 MG TABLET (UD) GT SCH ×2 (11:14→22:57)
[2021-08-31] MEDS: APIXABAN 5 MG TABLET GT SCH ×2 (11:14→22:57)
[2021-08-31] MEDS: THEOPHYLLINE ANHYDROUS 80 MG/15 ML GT SCH ×2 (11:15→23:05)
[2021-08-31] MEDS: FAMOTIDINE 40 MG/5 ML ORAL SUSPENSION GT SCH (11:15)
[2021-08-31] MEDS: buPROPion HCL 100 MG TABLET PO SCH (11:16)
[2021-08-31 11:24] LABS: ANISOCYTOSIS 0; HELMET CELLS 0; HOWELL-JOLLY BODIES 0; MACROCYTOSIS 0; OVALOCYTE 0; ROULEAU 0; SICKELED CELLS 0; TARGET CELLS 0; TEAR DROP CELLS 0; TOXIC GRANULATION 0
[2021-08-31] MEDS: BACITRACIN 15 GM TUBE TOPICAL OINTMENT TP SCH (12:04)
[2021-08-31] MEDS: ALBUTEROL SO4 2.5/IPRATROPIUM 0.5 INH SOL 3 ML VIAL.NEB. NEB PRN (13:19)
[2021-08-31] MEDS ORDERED: PANTOPRAZOLE SODIUM 40 MG VIAL IVPUSH ONE (18:03)
[2021-08-31] MEDS: DEXTROSE 10%-WATER - 1,000 ML IV SCH (19:48)
[2021-08-31] MEDS: MELATONIN 5 MG TABLETS PO SCH (22:56)
[2021-08-31] MEDS: ATORVASTATIN CA 40 MG TABLET (FP) GT SCH (22:57)
[2021-08-31] MEDS: PANTOPRAZOLE SODIUM 40 MG VIAL IVPUSH SCH (22:58)
[2021-08-31] MEDS: MONTELUKAST NA 5 MG TAB.CHEW GT SCH (23:03)
[2021-09-01] MEDS: ALPRAZolam 1 MG TABLET GT SCH ×2 (06:54→18:35)
[2021-09-01] MEDS: BUDESONIDE 0.5 MG/2 ML INH SUSP VIAL NEB SCH ×2 (08:28→20:25)
[2021-09-01] MEDS ORDERED: DEXTROSE 5%-WATER 100 ML IVPB ONE (09:02)
[2021-09-01] MEDS: CEFTRIAXONE 2 GM in DEXTROSE 5%-WATER 2 GM/100 ML BAG IVPB SCH (11:16)
[2021-09-01] MEDS: POLYETHYLENE GLYCOL (HEALTHYLAX) 3350 17 GM PACKET PEG SCH (11:17)
[2021-09-01] MEDS: APIXABAN 5 MG TABLET GT SCH ×2 (11:17→22:04)
[2021-09-01] MEDS: METOPROLOL TARTRATE 25 MG TABLET (FP) GT SCH ×2 (11:17→22:05)
[2021-09-01] MEDS: PANTOPRAZOLE SODIUM 40 MG VIAL IVPUSH SCH ×2 (11:17→22:06)
[2021-09-01] MEDS: AMINO ACIDS/PROTEIN HYDROLYS 30 ML LIQUID.PKT GT SCH ×2 (11:18→17:32)
[2021-09-01] MEDS: predniSONE 20 MG TABLET (UD) GT SCH ×2 (11:18→22:04)
[2021-09-01] MEDS: BACITRACIN 15 GM TUBE TOPICAL OINTMENT TP SCH (11:18)
[2021-09-01] MEDS: THEOPHYLLINE ANHYDROUS 80 MG/15 ML GT SCH ×2 (11:20→22:36)
[2021-09-01] MEDS: buPROPion HCL 100 MG TABLET PO SCH (11:20)
[2021-09-01] MEDS: DEXTROSE 10%-WATER - 1,000 ML IV SCH (17:32)
[2021-09-01] MEDS: MELATONIN 5 MG TABLETS PO SCH (22:04)
[2021-09-01] MEDS: ATORVASTATIN CA 40 MG TABLET (FP) GT SCH (22:04)
[2021-09-01] MEDS: MONTELUKAST NA 5 MG TAB.CHEW GT SCH (22:06)
[2021-09-02] MEDS: ALPRAZolam 1 MG TABLET GT SCH ×2 (06:09→17:34)
[2021-09-02] MEDS: BUDESONIDE 0.5 MG/2 ML INH SUSP VIAL NEB SCH ×2 (07:44→20:28)
[2021-09-02] MEDS ORDERED: DEXTROSE 5%-WATER 100 ML IVPB ONE (10:35)
[2021-09-02] MEDS: METOPROLOL TARTRATE 25 MG TABLET (FP) GT SCH ×2 (10:43→22:15)
[2021-09-02] MEDS: CEFTRIAXONE 2 GM in DEXTROSE 5%-WATER 2 GM/100 ML BAG IVPB SCH (10:43)
[2021-09-02] MEDS: AMINO ACIDS/PROTEIN HYDROLYS 30 ML LIQUID.PKT GT SCH ×2 (10:44→17:34)
[2021-09-02] MEDS: APIXABAN 5 MG TABLET GT SCH ×2 (10:44→22:16)
[2021-09-02] MEDS: predniSONE 20 MG TABLET (UD) GT SCH ×2 (10:44→22:17)
[2021-09-02] MEDS: PANTOPRAZOLE SODIUM 40 MG VIAL IVPUSH SCH ×2 (10:44→22:15)
[2021-09-02] MEDS: POLYETHYLENE GLYCOL (HEALTHYLAX) 3350 17 GM PACKET PEG SCH (10:44)
[2021-09-02] MEDS: BACITRACIN 15 GM TUBE TOPICAL OINTMENT TP SCH (10:45)
[2021-09-02] MEDS: THEOPHYLLINE ANHYDROUS 80 MG/15 ML GT SCH ×2 (10:46→22:18)
[2021-09-02] MEDS: buPROPion HCL 100 MG TABLET PO SCH (10:46)
[2021-09-02] MEDS: ALBUTEROL SO4 2.5/IPRATROPIUM 0.5 INH SOL 3 ML VIAL.NEB. NEB PRN (16:22)
[2021-09-02] MEDS: FLUTICASONE PROP 0.05% 16 GM NASAL SPRAY NS SCH (17:34)
[2021-09-02] MEDS: DEXTROSE 10%-WATER - 1,000 ML IV SCH (17:35)
[2021-09-02] MEDS: ATORVASTATIN CA 40 MG TABLET (FP) GT SCH (22:13)
[2021-09-02] MEDS: MELATONIN 5 MG TABLETS PO SCH (22:15)
[2021-09-02] MEDS: MONTELUKAST NA 5 MG TAB.CHEW GT SCH (22:18)
[2021-09-03] MEDS: ALPRAZolam 1 MG TABLET GT SCH ×2 (05:55→17:16)
[2021-09-03] MEDS: BUDESONIDE 0.5 MG/2 ML INH SUSP VIAL NEB SCH ×2 (07:43→20:37)
[2021-09-03] MEDS: AMINO ACIDS/PROTEIN HYDROLYS 30 ML LIQUID.PKT GT SCH ×2 (08:42→17:16)
[2021-09-03] MEDS ORDERED: DEXTROSE 5%-WATER 100 ML IVPB ONE (09:42)
[2021-09-03] MEDS: PANTOPRAZOLE SODIUM 40 MG VIAL IVPUSH SCH ×2 (09:44→21:53)
[2021-09-03] MEDS: APIXABAN 5 MG TABLET GT SCH ×2 (09:44→21:53)
[2021-09-03] MEDS: predniSONE 20 MG TABLET (UD) GT SCH (09:44)
[2021-09-03] MEDS: CEFTRIAXONE 2 GM in DEXTROSE 5%-WATER 2 GM/100 ML BAG IVPB SCH (09:44)
[2021-09-03] MEDS: METOPROLOL TARTRATE 25 MG TABLET (FP) GT SCH ×2 (09:44→21:53)
[2021-09-03] MEDS: THEOPHYLLINE ANHYDROUS 80 MG/15 ML GT SCH ×2 (09:45→21:54)
[2021-09-03] MEDS: POLYETHYLENE GLYCOL (HEALTHYLAX) 3350 17 GM PACKET PEG SCH (09:45)
[2021-09-03] MEDS: buPROPion HCL 100 MG TABLET PO SCH (09:46)
[2021-09-03] MEDS: FLUTICASONE PROP 0.05% 16 GM NASAL SPRAY NS SCH (10:08)
[2021-09-03] MEDS: BACITRACIN 15 GM TUBE TOPICAL OINTMENT TP SCH (10:08)
[2021-09-03] MEDS: ALBUTEROL SO4 2.5/IPRATROPIUM 0.5 INH SOL 3 ML VIAL.NEB. NEB PRN ×3 (10:32→20:37)
[2021-09-03] MEDS: DEXTROSE 10%-WATER - 1,000 ML IV SCH (18:29)
[2021-09-03] MEDS: ATORVASTATIN CA 40 MG TABLET (FP) GT SCH (21:53)
[2021-09-03] MEDS: predniSONE 10 MG TABLET (UD) GT SCH (21:53)
[2021-09-03] MEDS: MELATONIN 5 MG TABLETS PO SCH (21:53)
[2021-09-03] MEDS: MONTELUKAST NA 5 MG TAB.CHEW GT SCH (21:54)
[2021-09-04] MEDS: ALPRAZolam 1 MG TABLET GT SCH ×2 (06:05→17:27)
[2021-09-04] MEDS: AMINO ACIDS/PROTEIN HYDROLYS 30 ML LIQUID.PKT GT SCH ×2 (08:33→17:27)
[2021-09-04] MEDS: BUDESONIDE 0.5 MG/2 ML INH SUSP VIAL NEB SCH ×2 (08:34→20:26)
[2021-09-04] MEDS ORDERED: DEXTROSE 5%-WATER 100 ML IVPB ONE (10:45)
[2021-09-04] MEDS: buPROPion HCL 100 MG TABLET PO SCH (10:48)
[2021-09-04] MEDS: APIXABAN 5 MG TABLET GT SCH ×2 (10:48→21:43)
[2021-09-04] MEDS: PANTOPRAZOLE SODIUM 40 MG VIAL IVPUSH SCH ×2 (10:49→21:45)
[2021-09-04] MEDS: METOPROLOL TARTRATE 25 MG TABLET (FP) GT SCH ×2 (10:49→21:43)
[2021-09-04] MEDS: BACITRACIN 15 GM TUBE TOPICAL OINTMENT TP SCH (10:49)
[2021-09-04] MEDS: CEFTRIAXONE 2 GM in DEXTROSE 5%-WATER 2 GM/100 ML BAG IVPB SCH (10:49)
[2021-09-04] MEDS: THEOPHYLLINE ANHYDROUS 80 MG/15 ML GT SCH ×2 (10:50→21:45)
[2021-09-04] MEDS: POLYETHYLENE GLYCOL (HEALTHYLAX) 3350 17 GM PACKET PEG SCH (10:50)
[2021-09-04] MEDS: predniSONE 10 MG TABLET (UD) GT SCH ×2 (10:50→21:43)
[2021-09-04] MEDS: FLUTICASONE PROP 0.05% 16 GM NASAL SPRAY NS SCH (10:51)
[2021-09-04] MEDS: DEXTROSE 10%-WATER - 1,000 ML IV SCH (18:18)
[2021-09-04] MEDS: ATORVASTATIN CA 40 MG TABLET (FP) GT SCH (21:43)
[2021-09-04] MEDS: MELATONIN 5 MG TABLETS PO SCH (21:44)
[2021-09-04] MEDS: ALBUTEROL SO4 2.5/IPRATROPIUM 0.5 INH SOL 3 ML VIAL.NEB. NEB PRN (21:44)
[2021-09-04] MEDS: MONTELUKAST NA 5 MG TAB.CHEW GT SCH (21:45)
[2021-09-05] MEDS: ALPRAZolam 1 MG TABLET GT SCH ×2 (05:45→17:20)
[2021-09-05] MEDS: BUDESONIDE 0.5 MG/2 ML INH SUSP VIAL NEB SCH ×2 (08:10→20:05)
[2021-09-05] MEDS ORDERED: DEXTROSE 5%-WATER 100 ML IVPB ONE (09:10)
[2021-09-05] MEDS: CEFTRIAXONE 2 GM in DEXTROSE 5%-WATER 2 GM/100 ML BAG IVPB SCH (09:21)
[2021-09-05] MEDS: PANTOPRAZOLE SODIUM 40 MG VIAL IVPUSH SCH ×2 (09:21→22:15)
[2021-09-05] MEDS: METOPROLOL TARTRATE 25 MG TABLET (FP) GT SCH ×2 (09:21→22:20)
[2021-09-05] MEDS: APIXABAN 5 MG TABLET GT SCH ×2 (09:21→22:16)
[2021-09-05] MEDS: predniSONE 10 MG TABLET (UD) GT SCH ×2 (09:21→22:15)
[2021-09-05] MEDS: AMINO ACIDS/PROTEIN HYDROLYS 30 ML LIQUID.PKT GT SCH ×2 (09:21→17:20)
[2021-09-05] MEDS: FLUTICASONE PROP 0.05% 16 GM NASAL SPRAY NS SCH (09:27)
[2021-09-05] MEDS: BACITRACIN 15 GM TUBE TOPICAL OINTMENT TP SCH (09:27)
[2021-09-05] MEDS: POLYETHYLENE GLYCOL (HEALTHYLAX) 3350 17 GM PACKET PEG SCH (09:28)
[2021-09-05] MEDS: THEOPHYLLINE ANHYDROUS 80 MG/15 ML GT SCH ×2 (09:28→22:15)
[2021-09-05] MEDS: buPROPion HCL 100 MG TABLET PO SCH (11:31)
[2021-09-05] MEDS: ALBUTEROL SO4 2.5/IPRATROPIUM 0.5 INH SOL 3 ML VIAL.NEB. NEB PRN (14:16)
[2021-09-05] MEDS: DEXTROSE 10%-WATER - 1,000 ML IV SCH ×2 (16:19→22:40)
[2021-09-05] MEDS: MELATONIN 5 MG TABLETS PO SCH (22:15)
[2021-09-05] MEDS: ATORVASTATIN CA 40 MG TABLET (FP) GT SCH (22:16)
[2021-09-05] MEDS: MONTELUKAST NA 5 MG TAB.CHEW GT SCH (22:18)
[2021-09-06] MEDS: ALPRAZolam 1 MG TABLET GT SCH ×2 (05:38→17:23)
[2021-09-06] MEDS ORDERED: DEXTROSE 50%-WATER - 25 GM/50 ML VIAL ONE (06:44)
[2021-09-06] MEDS: AMINO ACIDS/PROTEIN HYDROLYS 30 ML LIQUID.PKT GT SCH ×2 (07:50→17:00)
[2021-09-06] MEDS: BUDESONIDE 0.5 MG/2 ML INH SUSP VIAL NEB SCH ×2 (08:02→21:23)
[2021-09-06] MEDS: ALBUTEROL SO4 2.5/IPRATROPIUM 0.5 INH SOL 3 ML VIAL.NEB. NEB PRN ×3 (08:10→15:31)
[2021-09-06 09:47] LABS: HEMATOCRIT 30.9 % (32.4-45.2); HEMOGLOBIN 9.6 GM/dL (10.7-15.3); MCH 30.3 pg (25.7-33.7); MCHC 31.2 g/dl (32.0-36.0); MEAN CELL VOLUME 97.2 fl (80-96); MEAN PLT VOLUME 10.1 fl (7.5-11.1); PLATELET COUNT 134 10^3/uL (134-434); RBC 3.17 M/mm3 (3.60-5.2); RDW 17.5 % (11.6-15.6); WHITE BLOOD COUNT 7.3 K/mm3 (4.0-10.0)
[2021-09-06 10:07] LABS: CALCIUM 8.4 mg/dL (8.5-10.1)
[2021-09-06 10:08] LABS: ALBUMIN 2.6 g/dl (3.4-5.0); BLOOD UREA NITROGEN 21.6 mg/dL (7-18); MAGNESIUM 2.3 mg/dL (1.8-2.4)
[2021-09-06 10:11] LABS: CREATININE 0.4 mg/dL (0.55-1.3)
[2021-09-06 10:12] LABS: TOT PROT 5.4 g/dl (6.4-8.2)
[2021-09-06 10:13] LABS: BILIRUBIN,TOTAL 0.3 mg/dL (0.2-1)
[2021-09-06] MEDS ORDERED: DEXTROSE 5%-WATER 100 ML IVPB ONE (10:33)
[2021-09-06] MEDS: APIXABAN 5 MG TABLET GT SCH ×2 (10:37→21:29)
[2021-09-06] MEDS: POLYETHYLENE GLYCOL (HEALTHYLAX) 3350 17 GM PACKET PEG SCH (10:37)
[2021-09-06] MEDS: predniSONE 10 MG TABLET (UD) GT SCH ×2 (10:37→21:29)
[2021-09-06] MEDS: METOPROLOL TARTRATE 25 MG TABLET (FP) GT SCH ×2 (10:38→21:28)
[2021-09-06] MEDS: FLUTICASONE PROP 0.05% 16 GM NASAL SPRAY NS SCH (10:39)
[2021-09-06] MEDS: BACITRACIN 15 GM TUBE TOPICAL OINTMENT TP SCH (10:40)
[2021-09-06] MEDS: THEOPHYLLINE ANHYDROUS 80 MG/15 ML GT SCH ×2 (10:41→21:30)
[2021-09-06] MEDS: CEFTRIAXONE 2 GM in DEXTROSE 5%-WATER 2 GM/100 ML BAG IVPB SCH (10:41)
[2021-09-06] MEDS: buPROPion HCL 100 MG TABLET PO SCH (10:41)
[2021-09-06] MEDS: PANTOPRAZOLE SODIUM 40 MG VIAL IVPUSH SCH ×2 (10:42→21:29)
[2021-09-06] MEDS ORDERED: DEXTROSE 50%-WATER 25 GM/50 ML DISP.SYRIN ONE (14:27)
[2021-09-06] MEDS ORDERED: DEXTROSE 50%-WATER 25 GM/50 ML DISP.SYRIN IVPUSH ONE (15:00)
[2021-09-06] MEDS: DEXTROSE 5%-NORMAL SALINE 1,000 ML IV SCH ×2 (15:53→17:00)
[2021-09-06] MEDS: MAG HYDROX/AL HYDROX/SIMETH 30 ML UNIT-DOSE CUP PO PRN (19:32)
[2021-09-06] MEDS: ACETAMINOPHEN 650 MG/20.3 ML ORAL SOLUTION (CUPS) GT PRN (21:27)
[2021-09-06] MEDS: MELATONIN 5 MG TABLETS PO SCH (21:29)
[2021-09-06] MEDS: ATORVASTATIN CA 40 MG TABLET (FP) GT SCH (21:29)
[2021-09-06] MEDS: MONTELUKAST NA 5 MG TAB.CHEW GT SCH (21:29)
[2021-09-06] MEDS: DEXTROSE 10%-WATER - 1,000 ML IV SCH (23:23)
[2021-09-07] MEDS: ALBUTEROL SO4 2.5/IPRATROPIUM 0.5 INH SOL 3 ML VIAL.NEB. NEB PRN ×4 (04:00→15:03)
[2021-09-07] MEDS: ALPRAZolam 1 MG TABLET GT SCH ×2 (06:12→18:11)
[2021-09-07] MEDS: BUDESONIDE 0.5 MG/2 ML INH SUSP VIAL NEB SCH ×2 (08:00→20:05)
[2021-09-07] MEDS ORDERED: DEXTROSE 5%-WATER 100 ML IVPB ONE (08:45)
[2021-09-07] MEDS: POLYETHYLENE GLYCOL (HEALTHYLAX) 3350 17 GM PACKET PEG SCH (11:04)
[2021-09-07] MEDS: buPROPion HCL 100 MG TABLET PO SCH (11:05)
[2021-09-07] MEDS: AMINO ACIDS/PROTEIN HYDROLYS 30 ML LIQUID.PKT GT SCH ×2 (11:05→18:12)
[2021-09-07] MEDS: METOPROLOL TARTRATE 25 MG TABLET (FP) GT SCH ×2 (11:06→21:08)
[2021-09-07] MEDS: CEFTRIAXONE 2 GM in DEXTROSE 5%-WATER 2 GM/100 ML BAG IVPB SCH (11:06)
[2021-09-07] MEDS: PANTOPRAZOLE SODIUM 40 MG VIAL IVPUSH SCH (11:06)
[2021-09-07] MEDS: APIXABAN 5 MG TABLET GT SCH ×2 (11:06→21:09)
[2021-09-07] MEDS: predniSONE 10 MG TABLET (UD) GT SCH ×2 (11:06→21:08)
[2021-09-07] MEDS: THEOPHYLLINE ANHYDROUS 80 MG/15 ML GT SCH ×2 (11:08→21:09)
[2021-09-07] MEDS: BACITRACIN 15 GM TUBE TOPICAL OINTMENT TP SCH (11:08)
[2021-09-07] MEDS: FLUTICASONE PROP 0.05% 16 GM NASAL SPRAY NS SCH (11:09)
[2021-09-07] MEDS: DEXTROSE 5%-NORMAL SALINE 1,000 ML IV SCH (18:16)
[2021-09-07] MEDS: MELATONIN 5 MG TABLETS PO SCH (21:08)
[2021-09-07] MEDS: ATORVASTATIN CA 40 MG TABLET (FP) GT SCH (21:09)
[2021-09-07] MEDS: FAMOTIDINE 40 MG/5 ML ORAL SUSPENSION GT SCH (21:09)
[2021-09-07] MEDS: MONTELUKAST NA 5 MG TAB.CHEW GT SCH (21:09)
[2021-09-07] MEDS ORDERED: PANTOPRAZOLE 40 MG TABLET PO SCH (22:00)
[2021-09-08] MEDS: ALBUTEROL SO4 2.5/IPRATROPIUM 0.5 INH SOL 3 ML VIAL.NEB. NEB PRN ×3 (01:02→17:10)
[2021-09-08] MEDS: ALPRAZolam 1 MG TABLET GT SCH ×2 (06:01→17:18)
[2021-09-08] MEDS: BUDESONIDE 0.5 MG/2 ML INH SUSP VIAL NEB SCH ×2 (08:45→20:21)
[2021-09-08] MEDS: METOPROLOL TARTRATE 25 MG TABLET (FP) GT SCH ×2 (11:29→22:17)
[2021-09-08] MEDS: APIXABAN 5 MG TABLET GT SCH ×2 (11:30→22:16)
[2021-09-08] MEDS: predniSONE 10 MG TABLET (UD) GT SCH ×2 (11:31→22:16)
[2021-09-08] MEDS: POLYETHYLENE GLYCOL (HEALTHYLAX) 3350 17 GM PACKET PEG SCH (11:31)
[2021-09-08] MEDS: AMINO ACIDS/PROTEIN HYDROLYS 30 ML LIQUID.PKT GT SCH ×2 (11:31→17:13)
[2021-09-08] MEDS: FLUTICASONE PROP 0.05% 16 GM NASAL SPRAY NS SCH (11:32)
[2021-09-08] MEDS: BACITRACIN 15 GM TUBE TOPICAL OINTMENT TP SCH (11:32)
[2021-09-08] MEDS: FAMOTIDINE 40 MG/5 ML ORAL SUSPENSION GT SCH ×2 (11:34→22:16)
[2021-09-08] MEDS: THEOPHYLLINE ANHYDROUS 80 MG/15 ML GT SCH ×2 (11:35→22:17)
[2021-09-08] MEDS: buPROPion HCL 100 MG TABLET PO SCH (11:35)
[2021-09-08] MEDS: MAG HYDROX/AL HYDROX/SIMETH 30 ML UNIT-DOSE CUP PO PRN (15:48)
[2021-09-08] MEDS ORDERED: DEXTROSE 4 GM TAB.CHEW PO PRN (16:49)
[2021-09-08] MEDS: DEXTROSE 5%-NORMAL SALINE 1,000 ML IV SCH (17:13)
[2021-09-08] MEDS: MELATONIN 5 MG TABLETS PO SCH (22:16)
[2021-09-08] MEDS: MONTELUKAST NA 5 MG TAB.CHEW GT SCH (22:16)
[2021-09-08] MEDS: ATORVASTATIN CA 40 MG TABLET (FP) GT SCH (22:17)
[2021-09-09] MEDS: ALPRAZolam 1 MG TABLET GT SCH ×2 (06:12→17:24)
[2021-09-09] MEDS: BUDESONIDE 0.5 MG/2 ML INH SUSP VIAL NEB SCH ×2 (07:30→20:26)
[2021-09-09] MEDS: AMINO ACIDS/PROTEIN HYDROLYS 30 ML LIQUID.PKT GT SCH ×2 (08:21→17:24)
[2021-09-09] MEDS: DEXTROSE 5%-NORMAL SALINE 1,000 ML IV SCH ×2 (08:21→17:23)
[2021-09-09] MEDS: POLYETHYLENE GLYCOL (HEALTHYLAX) 3350 17 GM PACKET PEG SCH (10:21)
[2021-09-09] MEDS: APIXABAN 5 MG TABLET GT SCH ×2 (10:21→22:28)
[2021-09-09] MEDS: METOPROLOL TARTRATE 25 MG TABLET (FP) GT SCH ×2 (10:21→22:31)
[2021-09-09] MEDS: predniSONE 10 MG TABLET (UD) GT SCH ×2 (10:21→22:28)
[2021-09-09] MEDS: buPROPion HCL 100 MG TABLET PO SCH (10:21)
[2021-09-09] MEDS: BACITRACIN 15 GM TUBE TOPICAL OINTMENT TP SCH (10:22)
[2021-09-09] MEDS: FLUTICASONE PROP 0.05% 16 GM NASAL SPRAY NS SCH (10:22)
[2021-09-09] MEDS: THEOPHYLLINE ANHYDROUS 80 MG/15 ML GT SCH ×2 (10:23→22:27)
[2021-09-09] MEDS: FAMOTIDINE 40 MG/5 ML ORAL SUSPENSION GT SCH ×2 (10:23→22:28)
[2021-09-09] MEDS: ALBUTEROL SO4 2.5/IPRATROPIUM 0.5 INH SOL 3 ML VIAL.NEB. NEB PRN ×2 (16:06→22:31)
[2021-09-09] MEDS: MONTELUKAST NA 5 MG TAB.CHEW GT SCH (22:27)
[2021-09-09] MEDS: ATORVASTATIN CA 40 MG TABLET (FP) GT SCH (22:28)
[2021-09-09] MEDS: MELATONIN 5 MG TABLETS PO SCH (22:28)
[2021-09-10] MEDS: ALPRAZolam 1 MG TABLET GT SCH ×2 (06:21→18:18)
[2021-09-10] MEDS: BUDESONIDE 0.5 MG/2 ML INH SUSP VIAL NEB SCH ×2 (07:43→20:37)
[2021-09-10] MEDS: POLYETHYLENE GLYCOL (HEALTHYLAX) 3350 17 GM PACKET PEG SCH (10:58)
[2021-09-10] MEDS: BACITRACIN 15 GM TUBE TOPICAL OINTMENT TP SCH (10:59)
[2021-09-10] MEDS: AMINO ACIDS/PROTEIN HYDROLYS 30 ML LIQUID.PKT GT SCH ×2 (10:59→18:18)
[2021-09-10] MEDS: METOPROLOL TARTRATE 25 MG TABLET (FP) GT SCH ×2 (11:00→21:34)
[2021-09-10] MEDS: predniSONE 10 MG TABLET (UD) GT SCH ×2 (11:00→21:34)
[2021-09-10] MEDS: FLUTICASONE PROP 0.05% 16 GM NASAL SPRAY NS SCH (11:00)
[2021-09-10] MEDS: APIXABAN 5 MG TABLET GT SCH ×2 (11:00→21:34)
[2021-09-10] MEDS: THEOPHYLLINE ANHYDROUS 80 MG/15 ML GT SCH ×2 (11:01→21:36)
[2021-09-10] MEDS: FAMOTIDINE 40 MG/5 ML ORAL SUSPENSION GT SCH ×2 (11:02→21:33)
[2021-09-10] MEDS: buPROPion HCL 100 MG TABLET PO SCH (13:53)
[2021-09-10] MEDS: ALBUTEROL SO4 2.5/IPRATROPIUM 0.5 INH SOL 3 ML VIAL.NEB. NEB PRN (14:17)
[2021-09-10] MEDS: DEXTROSE 5%-NORMAL SALINE 1,000 ML IV SCH ×2 (14:21→18:17)
[2021-09-10] MEDS: MELATONIN 5 MG TABLETS PO SCH (21:33)
[2021-09-10] MEDS: ATORVASTATIN CA 40 MG TABLET (FP) GT SCH (21:34)
[2021-09-10] MEDS: MONTELUKAST NA 5 MG TAB.CHEW GT SCH (21:35)
[2021-09-11] MEDS: ALPRAZolam 1 MG TABLET GT SCH ×2 (05:33→18:18)
[2021-09-11] MEDS: BUDESONIDE 0.5 MG/2 ML INH SUSP VIAL NEB SCH ×2 (08:40→20:17)
[2021-09-11] MEDS: BACITRACIN 15 GM TUBE TOPICAL OINTMENT TP SCH (10:00)
[2021-09-11] MEDS: predniSONE 5 MG TABLET (UD) GT SCH ×2 (10:10→22:01)
[2021-09-11] MEDS: METOPROLOL TARTRATE 25 MG TABLET (FP) GT SCH ×2 (10:10→22:03)
[2021-09-11] MEDS: AMINO ACIDS/PROTEIN HYDROLYS 30 ML LIQUID.PKT GT SCH ×2 (10:12→18:17)
[2021-09-11] MEDS: POLYETHYLENE GLYCOL (HEALTHYLAX) 3350 17 GM PACKET PEG SCH (10:12)
[2021-09-11] MEDS: APIXABAN 5 MG TABLET GT SCH ×2 (10:12→22:01)
[2021-09-11] MEDS: FUROSEMIDE 20 MG TABLET (FP) PO SCH (10:12)
[2021-09-11] MEDS: buPROPion HCL 100 MG TABLET PO SCH (10:13)
[2021-09-11] MEDS: FLUTICASONE PROP 0.05% 16 GM NASAL SPRAY NS SCH (10:19)
[2021-09-11] MEDS: THEOPHYLLINE ANHYDROUS 80 MG/15 ML GT SCH ×2 (12:42→22:04)
[2021-09-11] MEDS: FAMOTIDINE 40 MG/5 ML ORAL SUSPENSION GT SCH ×2 (12:43→23:51)
[2021-09-11] MEDS: ALBUTEROL SO4 2.5/IPRATROPIUM 0.5 INH SOL 3 ML VIAL.NEB. NEB PRN (14:50)
[2021-09-11] MEDS: ACETAMINOPHEN 650 MG/20.3 ML ORAL SOLUTION (CUPS) GT PRN (18:17)
[2021-09-11] MEDS: ATORVASTATIN CA 40 MG TABLET (FP) GT SCH (22:01)
[2021-09-11] MEDS: MELATONIN 5 MG TABLETS PO SCH (22:02)
[2021-09-11] MEDS: MONTELUKAST NA 5 MG TAB.CHEW GT SCH (22:04)
[2021-09-12] MEDS: ALPRAZolam 1 MG TABLET GT SCH ×2 (06:07→18:47)
[2021-09-12] MEDS: BUDESONIDE 0.5 MG/2 ML INH SUSP VIAL NEB SCH ×2 (08:45→20:54)
[2021-09-12] MEDS: predniSONE 5 MG TABLET (UD) GT SCH ×2 (11:18→21:31)
[2021-09-12] MEDS: APIXABAN 5 MG TABLET GT SCH ×2 (11:18→21:31)
[2021-09-12] MEDS: AMINO ACIDS/PROTEIN HYDROLYS 30 ML LIQUID.PKT GT SCH ×2 (11:18→18:47)
[2021-09-12] MEDS: POLYETHYLENE GLYCOL (HEALTHYLAX) 3350 17 GM PACKET PEG SCH (11:18)
[2021-09-12] MEDS: METOPROLOL TARTRATE 25 MG TABLET (FP) GT SCH ×2 (11:18→21:31)
[2021-09-12] MEDS: BACITRACIN 15 GM TUBE TOPICAL OINTMENT TP SCH (11:19)
[2021-09-12] MEDS: FLUTICASONE PROP 0.05% 16 GM NASAL SPRAY NS SCH (11:20)
[2021-09-12] MEDS: FUROSEMIDE 20 MG TABLET (FP) PO SCH (11:21)
[2021-09-12] MEDS: buPROPion HCL 100 MG TABLET PO SCH (11:25)
[2021-09-12] MEDS: THEOPHYLLINE ANHYDROUS 80 MG/15 ML GT SCH ×2 (11:38→21:30)
[2021-09-12] MEDS: FAMOTIDINE 40 MG/5 ML ORAL SUSPENSION GT SCH ×2 (11:38→21:32)
[2021-09-12] MEDS: MAG HYDROX/AL HYDROX/SIMETH 30 ML UNIT-DOSE CUP PO PRN (12:39)
[2021-09-12 13:13] LABS: BASO % 0.3 % (0-2.0); EOS % 0.6 % (0-4.5); HEMATOCRIT 36.6 % (32.4-45.2); HEMOGLOBIN 11.2 GM/dL (10.7-15.3); MCH 30.2 pg (25.7-33.7); MCHC 30.6 g/dl (32.0-36.0); MEAN CELL VOLUME 98.7 fl (80-96); MEAN PLT VOLUME 9.9 fl (7.5-11.1); MONO % 7.2 % (3.8-10.2); NEUT % 78.9 % (42.8-82.8); PLATELET COUNT 160 10^3/uL (134-434); RBC 3.71 M/mm3 (3.60-5.2); RDW 17.1 % (11.6-15.6); WHITE BLOOD COUNT 8.7 K/mm3 (4.0-10.0)
[2021-09-12 13:24] LABS: CALCIUM 8.7 mg/dL (8.5-10.1)
[2021-09-12 13:25] LABS: ALBUMIN 2.9 g/dl (3.4-5.0); BLOOD UREA NITROGEN 21.9 mg/dL (7-18)
[2021-09-12 13:28] LABS: CREATININE 0.4 mg/dL (0.55-1.3)
[2021-09-12 13:29] LABS: BILIRUBIN,TOTAL 0.6 mg/dL (0.2-1)
[2021-09-12 13:30] LABS: TOT PROT 5.9 g/dl (6.4-8.2)
[2021-09-12] MEDS: MELATONIN 5 MG TABLETS PO SCH (21:31)
[2021-09-12] MEDS: ATORVASTATIN CA 40 MG TABLET (FP) GT SCH (21:31)
[2021-09-12] MEDS: MONTELUKAST NA 5 MG TAB.CHEW GT SCH (21:34)
[2021-09-13] MEDS: ALPRAZolam 1 MG TABLET GT SCH ×2 (05:57→17:41)
[2021-09-13] MEDS: BUDESONIDE 0.5 MG/2 ML INH SUSP VIAL NEB SCH ×2 (08:32→21:05)
[2021-09-13] MEDS: POLYETHYLENE GLYCOL (HEALTHYLAX) 3350 17 GM PACKET PEG SCH (11:22)
[2021-09-13] MEDS: APIXABAN 5 MG TABLET GT SCH ×2 (11:22→21:53)
[2021-09-13] MEDS: predniSONE 5 MG TABLET (UD) GT SCH ×2 (11:22→21:51)
[2021-09-13] MEDS: AMINO ACIDS/PROTEIN HYDROLYS 30 ML LIQUID.PKT GT SCH ×2 (11:22→17:41)
[2021-09-13] MEDS: FUROSEMIDE 20 MG TABLET (FP) PO SCH (11:22)
[2021-09-13] MEDS: BACITRACIN 15 GM TUBE TOPICAL OINTMENT TP SCH (11:23)
[2021-09-13] MEDS: FLUTICASONE PROP 0.05% 16 GM NASAL SPRAY NS SCH (11:24)
[2021-09-13] MEDS: THEOPHYLLINE ANHYDROUS 80 MG/15 ML GT SCH ×2 (11:27→21:54)
[2021-09-13] MEDS: FAMOTIDINE 40 MG/5 ML ORAL SUSPENSION GT SCH ×2 (11:27→21:53)
[2021-09-13] MEDS: METOPROLOL TARTRATE 25 MG TABLET (FP) GT SCH ×2 (11:37→21:50)
[2021-09-13] MEDS: buPROPion HCL 100 MG TABLET PO SCH ×2 (11:38→21:53)
[2021-09-13] MEDS: ALBUTEROL SO4 2.5/IPRATROPIUM 0.5 INH SOL 3 ML VIAL.NEB. NEB PRN ×2 (12:20→17:47)
[2021-09-13] MEDS: MONTELUKAST NA 5 MG TAB.CHEW GT SCH (21:53)
[2021-09-13] MEDS: ATORVASTATIN CA 40 MG TABLET (FP) GT SCH (21:53)
[2021-09-13] MEDS: MELATONIN 5 MG TABLETS PO SCH (21:53)
[2021-09-14] MEDS: ALPRAZolam 1 MG TABLET GT SCH ×2 (05:42→18:45)
[2021-09-14] MEDS: BUDESONIDE 0.5 MG/2 ML INH SUSP VIAL NEB SCH ×2 (08:30→20:30)
[2021-09-14] MEDS: AMINO ACIDS/PROTEIN HYDROLYS 30 ML LIQUID.PKT GT SCH ×2 (10:50→18:45)
[2021-09-14] MEDS: FAMOTIDINE 40 MG/5 ML ORAL SUSPENSION GT SCH (10:50)
[2021-09-14] MEDS: POLYETHYLENE GLYCOL (HEALTHYLAX) 3350 17 GM PACKET PEG SCH (10:51)
[2021-09-14] MEDS: APIXABAN 5 MG TABLET GT SCH (10:51)
[2021-09-14] MEDS: METOPROLOL TARTRATE 25 MG TABLET (FP) GT SCH (10:51)
[2021-09-14] MEDS: predniSONE 5 MG TABLET (UD) GT SCH (10:51)
[2021-09-14] MEDS: FUROSEMIDE 20 MG TABLET (FP) PO SCH (10:51)
[2021-09-14] MEDS: FLUTICASONE PROP 0.05% 16 GM NASAL SPRAY NS SCH (10:52)
[2021-09-14] MEDS: buPROPion HCL 100 MG TABLET PO SCH (10:52)
[2021-09-14] MEDS: BACITRACIN 15 GM TUBE TOPICAL OINTMENT TP SCH (10:52)
[2021-09-14] MEDS: THEOPHYLLINE ANHYDROUS 80 MG/15 ML GT SCH (10:52)
[2021-09-14] MEDS: ALBUTEROL SO4 2.5/IPRATROPIUM 0.5 INH SOL 3 ML VIAL.NEB. NEB PRN (10:58)
[2021-09-15] MEDS: FAMOTIDINE 40 MG/5 ML ORAL SUSPENSION GT SCH ×3 (00:11→21:54)
[2021-09-15] MEDS: MELATONIN 5 MG TABLETS PO SCH ×2 (00:11→21:58)
[2021-09-15] MEDS: MONTELUKAST NA 5 MG TAB.CHEW GT SCH ×2 (00:11→21:55)
[2021-09-15] MEDS: ATORVASTATIN CA 40 MG TABLET (FP) GT SCH ×2 (00:12→21:54)
[2021-09-15] MEDS: APIXABAN 5 MG TABLET GT SCH ×3 (00:12→21:54)
[2021-09-15] MEDS: predniSONE 5 MG TABLET (UD) GT SCH ×3 (00:12→21:54)
[2021-09-15] MEDS: THEOPHYLLINE ANHYDROUS 80 MG/15 ML GT SCH ×3 (00:13→21:54)
[2021-09-15] MEDS: METOPROLOL TARTRATE 25 MG TABLET (FP) GT SCH ×3 (00:14→21:55)
[2021-09-15] MEDS: buPROPion HCL 100 MG TABLET PO SCH ×3 (00:27→21:55)
[2021-09-15] MEDS: MAG HYDROX/AL HYDROX/SIMETH 30 ML UNIT-DOSE CUP PO PRN (01:25)
[2021-09-15] MEDS: ALPRAZolam 1 MG TABLET GT SCH (05:16)
[2021-09-15] MEDS: AMINO ACIDS/PROTEIN HYDROLYS 30 ML LIQUID.PKT GT SCH ×2 (08:13→17:01)
[2021-09-15] MEDS: BUDESONIDE 0.5 MG/2 ML INH SUSP VIAL NEB SCH ×2 (08:41→20:00)
[2021-09-15] MEDS: POLYETHYLENE GLYCOL (HEALTHYLAX) 3350 17 GM PACKET PEG SCH (10:20)
[2021-09-15] MEDS: FUROSEMIDE 40 MG/4 ML INJECTABLE VIAL IVPUSH SCH ×2 (10:20→14:17)
[2021-09-15] MEDS: BACITRACIN 15 GM TUBE TOPICAL OINTMENT TP SCH (10:21)
[2021-09-15] MEDS: FLUTICASONE PROP 0.05% 16 GM NASAL SPRAY NS SCH (10:21)
[2021-09-15] MEDS: ALBUTEROL SO4 2.5/IPRATROPIUM 0.5 INH SOL 3 ML VIAL.NEB. NEB PRN (11:43)
[2021-09-15] MEDS: ALPRAZolam 1 MG TABLET GT PRN (20:52)
[2021-09-16] MEDS: BUDESONIDE 0.5 MG/2 ML INH SUSP VIAL NEB SCH ×2 (07:40→20:05)
[2021-09-16] MEDS: ALPRAZolam 1 MG TABLET GT PRN ×2 (08:19→18:18)
[2021-09-16] MEDS: ALBUTEROL SO4 2.5/IPRATROPIUM 0.5 INH SOL 3 ML VIAL.NEB. NEB PRN ×2 (08:40→13:55)
[2021-09-16] MEDS: predniSONE 5 MG TABLET (UD) GT SCH ×2 (10:15→22:08)
[2021-09-16] MEDS: AMINO ACIDS/PROTEIN HYDROLYS 30 ML LIQUID.PKT GT SCH ×2 (10:15→16:44)
[2021-09-16] MEDS: THEOPHYLLINE ANHYDROUS 80 MG/15 ML GT SCH ×2 (10:16→22:10)
[2021-09-16] MEDS: BACITRACIN 15 GM TUBE TOPICAL OINTMENT TP SCH (10:19)
[2021-09-16] MEDS: FUROSEMIDE 40 MG/5 ML UNIT-DOSE CUP GT SCH (10:21)
[2021-09-16] MEDS: POLYETHYLENE GLYCOL (HEALTHYLAX) 3350 17 GM PACKET PEG SCH (10:21)
[2021-09-16] MEDS: APIXABAN 5 MG TABLET GT SCH ×2 (10:22→22:08)
[2021-09-16] MEDS: buPROPion HCL 100 MG TABLET PO SCH ×2 (10:22→22:09)
[2021-09-16] MEDS: FAMOTIDINE 40 MG/5 ML ORAL SUSPENSION GT SCH ×2 (10:23→22:10)
[2021-09-16] MEDS: METOPROLOL TARTRATE 25 MG TABLET (FP) GT SCH ×2 (10:23→22:09)
[2021-09-16] MEDS: FLUTICASONE PROP 0.05% 16 GM NASAL SPRAY NS SCH (10:23)
[2021-09-16] MEDS: ALBUTEROL SO4 2.5/IPRATROPIUM 0.5 INH SOL 3 ML VIAL.NEB. NEB SCH ×2 (15:46→20:05)
[2021-09-16] MEDS: MONTELUKAST NA 5 MG TAB.CHEW GT SCH (22:09)
[2021-09-16] MEDS: MELATONIN 5 MG TABLETS PO SCH (22:10)
[2021-09-16] MEDS: ATORVASTATIN CA 40 MG TABLET (FP) GT SCH (22:10)
[2021-09-17] MEDS: ALBUTEROL SO4 2.5/IPRATROPIUM 0.5 INH SOL 3 ML VIAL.NEB. NEB SCH ×4 (07:51→20:13)
[2021-09-17] MEDS: BUDESONIDE 0.5 MG/2 ML INH SUSP VIAL NEB SCH ×2 (07:52→20:13)
[2021-09-17] MEDS: ALPRAZolam 1 MG TABLET GT PRN ×2 (11:30→21:59)
[2021-09-17] MEDS: BACITRACIN 15 GM TUBE TOPICAL OINTMENT TP SCH (11:30)
[2021-09-17] MEDS: AMINO ACIDS/PROTEIN HYDROLYS 30 ML LIQUID.PKT GT SCH ×2 (11:30→19:12)
[2021-09-17] MEDS: APIXABAN 5 MG TABLET GT SCH ×2 (11:30→22:10)
[2021-09-17] MEDS: buPROPion HCL 100 MG TABLET PO SCH ×2 (11:31→22:12)
[2021-09-17] MEDS: METOPROLOL TARTRATE 25 MG TABLET (FP) GT SCH ×2 (11:32→22:11)
[2021-09-17] MEDS: FAMOTIDINE 40 MG/5 ML ORAL SUSPENSION GT SCH ×2 (11:33→22:11)
[2021-09-17] MEDS: FUROSEMIDE 40 MG/5 ML UNIT-DOSE CUP GT SCH (11:33)
[2021-09-17] MEDS: FLUTICASONE PROP 0.05% 16 GM NASAL SPRAY NS SCH (11:33)
[2021-09-17] MEDS: POLYETHYLENE GLYCOL (HEALTHYLAX) 3350 17 GM PACKET PEG SCH (11:33)
[2021-09-17] MEDS: THEOPHYLLINE ANHYDROUS 80 MG/15 ML GT SCH ×2 (11:34→22:12)
[2021-09-17] MEDS: ACETAMINOPHEN 650 MG/20.3 ML ORAL SOLUTION (CUPS) GT PRN (16:05)
[2021-09-17] MEDS: predniSONE 5 MG TABLET (UD) GT SCH ×2 (16:06→22:10)
[2021-09-17] MEDS: ATORVASTATIN CA 40 MG TABLET (FP) GT SCH (22:10)
[2021-09-17] MEDS: MELATONIN 5 MG TABLETS PO SCH (22:10)
[2021-09-17] MEDS: MONTELUKAST NA 5 MG TAB.CHEW GT SCH (22:12)
[2021-09-18] MEDS: BUDESONIDE 0.5 MG/2 ML INH SUSP VIAL NEB SCH ×2 (07:45→20:20)
[2021-09-18] MEDS: ALBUTEROL SO4 2.5/IPRATROPIUM 0.5 INH SOL 3 ML VIAL.NEB. NEB SCH ×4 (07:45→20:25)
[2021-09-18] MEDS: AMINO ACIDS/PROTEIN HYDROLYS 30 ML LIQUID.PKT GT SCH ×2 (08:34→18:32)
[2021-09-18] MEDS: METOPROLOL TARTRATE 25 MG TABLET (FP) GT SCH ×2 (11:10→23:21)
[2021-09-18] MEDS: APIXABAN 5 MG TABLET GT SCH ×2 (11:10→23:21)
[2021-09-18] MEDS: POLYETHYLENE GLYCOL (HEALTHYLAX) 3350 17 GM PACKET PEG SCH (11:10)
[2021-09-18] MEDS: predniSONE 5 MG TABLET (UD) GT SCH ×2 (11:11→23:20)
[2021-09-18] MEDS: BACITRACIN 15 GM TUBE TOPICAL OINTMENT TP SCH (11:12)
[2021-09-18] MEDS: FAMOTIDINE 40 MG/5 ML ORAL SUSPENSION GT SCH ×2 (11:13→23:49)
[2021-09-18] MEDS: FLUTICASONE PROP 0.05% 16 GM NASAL SPRAY NS SCH (11:13)
[2021-09-18] MEDS: FUROSEMIDE 40 MG/5 ML UNIT-DOSE CUP GT SCH (11:14)
[2021-09-18] MEDS: THEOPHYLLINE ANHYDROUS 80 MG/15 ML GT SCH ×2 (11:14→23:49)
[2021-09-18] MEDS: buPROPion HCL 100 MG TABLET PO SCH ×2 (11:14→23:49)
[2021-09-18] MEDS: ALBUTEROL SO4 2.5/IPRATROPIUM 0.5 INH SOL 3 ML VIAL.NEB. NEB PRN (22:46)
[2021-09-18] MEDS: ALPRAZolam 1 MG TABLET GT PRN (22:47)
[2021-09-18] MEDS: MELATONIN 5 MG TABLETS PO SCH (23:20)
[2021-09-18] MEDS: ATORVASTATIN CA 40 MG TABLET (FP) GT SCH (23:21)
[2021-09-18] MEDS: MONTELUKAST NA 5 MG TAB.CHEW GT SCH (23:49)
[2021-09-19] MEDS: ALBUTEROL SO4 2.5/IPRATROPIUM 0.5 INH SOL 3 ML VIAL.NEB. NEB SCH ×4 (08:00→20:04)
[2021-09-19] MEDS: BUDESONIDE 0.5 MG/2 ML INH SUSP VIAL NEB SCH ×2 (08:00→20:04)
[2021-09-19] MEDS: AMINO ACIDS/PROTEIN HYDROLYS 30 ML LIQUID.PKT GT SCH ×2 (08:27→16:54)
[2021-09-19] MEDS: FAMOTIDINE 40 MG/5 ML ORAL SUSPENSION GT SCH ×2 (10:42→22:22)
[2021-09-19] MEDS: METOPROLOL TARTRATE 25 MG TABLET (FP) GT SCH ×2 (10:42→22:16)
[2021-09-19] MEDS: APIXABAN 5 MG TABLET GT SCH ×2 (10:44→22:16)
[2021-09-19] MEDS: THEOPHYLLINE ANHYDROUS 80 MG/15 ML GT SCH ×2 (10:44→23:26)
[2021-09-19] MEDS: FUROSEMIDE 40 MG/5 ML UNIT-DOSE CUP GT SCH (10:44)
[2021-09-19] MEDS: predniSONE 5 MG TABLET (UD) GT SCH ×2 (10:45→22:19)
[2021-09-19] MEDS: POLYETHYLENE GLYCOL (HEALTHYLAX) 3350 17 GM PACKET PEG SCH (10:46)
[2021-09-19] MEDS: BACITRACIN 15 GM TUBE TOPICAL OINTMENT TP SCH (10:47)
[2021-09-19] MEDS: FLUTICASONE PROP 0.05% 16 GM NASAL SPRAY NS SCH (10:50)
[2021-09-19] MEDS: buPROPion HCL 100 MG TABLET PO SCH ×2 (10:51→22:23)
[2021-09-19] MEDS: ALPRAZolam 1 MG TABLET GT PRN ×2 (10:53→22:24)
[2021-09-19 18:20] LABS: ARTERIAL BLD GAS O2 SATURATION 98.5 % (95-98); ARTERIAL BLOOD GAS BASE EXCESS 18.1 mmol/L (-2-2); ARTERIAL BLOOD GAS PO2 136.7 mmHg (80-100); ARTERIAL BLOOD GAS pH 7.387 (7.350-7.450)
[2021-09-19 18:24] LABS: ALLENS TEST POSITIVE
[2021-09-19] MEDS: ATORVASTATIN CA 40 MG TABLET (FP) GT SCH (22:21)
[2021-09-19] MEDS: MONTELUKAST NA 5 MG TAB.CHEW GT SCH (22:22)
[2021-09-19] MEDS: MELATONIN 5 MG TABLETS PO SCH (22:22)
[2021-09-20] MEDS: ALBUTEROL SO4 2.5/IPRATROPIUM 0.5 INH SOL 3 ML VIAL.NEB. NEB SCH ×4 (08:00→20:19)
[2021-09-20] MEDS: AMINO ACIDS/PROTEIN HYDROLYS 30 ML LIQUID.PKT GT SCH ×2 (08:30→17:59)
[2021-09-20] MEDS: ALPRAZolam 1 MG TABLET GT PRN ×2 (09:38→21:24)
[2021-09-20] MEDS: BUDESONIDE 0.5 MG/2 ML INH SUSP VIAL NEB SCH ×2 (09:51→20:19)
[2021-09-20] MEDS: predniSONE 5 MG TABLET (UD) GT SCH ×2 (10:51→22:47)
[2021-09-20] MEDS: APIXABAN 5 MG TABLET GT SCH ×2 (10:52→22:47)
[2021-09-20] MEDS: METOPROLOL TARTRATE 25 MG TABLET (FP) GT SCH ×2 (10:52→22:45)
[2021-09-20] MEDS: FLUTICASONE PROP 0.05% 16 GM NASAL SPRAY NS SCH (10:53)
[2021-09-20] MEDS: buPROPion HCL 100 MG TABLET PO SCH ×2 (10:53→22:44)
[2021-09-20] MEDS: BACITRACIN 15 GM TUBE TOPICAL OINTMENT TP SCH (10:53)
[2021-09-20] MEDS: FUROSEMIDE 40 MG/5 ML UNIT-DOSE CUP GT SCH (10:53)
[2021-09-20] MEDS: POLYETHYLENE GLYCOL (HEALTHYLAX) 3350 17 GM PACKET PEG SCH (10:53)
[2021-09-20] MEDS: FAMOTIDINE 40 MG/5 ML ORAL SUSPENSION GT SCH ×2 (10:54→22:44)
[2021-09-20] MEDS: THEOPHYLLINE ANHYDROUS 80 MG/15 ML GT SCH ×2 (10:54→22:44)
[2021-09-20] MEDS: MONTELUKAST NA 5 MG TAB.CHEW GT SCH (22:44)
[2021-09-20] MEDS: MELATONIN 5 MG TABLETS PO SCH (22:45)
[2021-09-20] MEDS: ATORVASTATIN CA 40 MG TABLET (FP) GT SCH (22:46)
[2021-09-21] MEDS: ALBUTEROL SO4 2.5/IPRATROPIUM 0.5 INH SOL 3 ML VIAL.NEB. NEB SCH ×2 (07:15→11:39)
[2021-09-21] MEDS: BUDESONIDE 0.5 MG/2 ML INH SUSP VIAL NEB SCH ×2 (07:15→20:10)
[2021-09-21] MEDS: APIXABAN 5 MG TABLET GT SCH ×2 (11:21→22:53)
[2021-09-21] MEDS: predniSONE 5 MG TABLET (UD) GT SCH ×2 (11:21→22:52)
[2021-09-21] MEDS: METOPROLOL TARTRATE 25 MG TABLET (FP) GT SCH ×2 (11:22→22:52)
[2021-09-21] MEDS: BACITRACIN 15 GM TUBE TOPICAL OINTMENT TP SCH (11:23)
[2021-09-21] MEDS: POLYETHYLENE GLYCOL (HEALTHYLAX) 3350 17 GM PACKET PEG SCH (11:23)
[2021-09-21] MEDS: AMINO ACIDS/PROTEIN HYDROLYS 30 ML LIQUID.PKT GT SCH ×2 (11:23→17:28)
[2021-09-21] MEDS: buPROPion HCL 100 MG TABLET PO SCH ×2 (11:24→22:53)
[2021-09-21] MEDS: THEOPHYLLINE ANHYDROUS 80 MG/15 ML GT SCH (11:25)
[2021-09-21] MEDS: FUROSEMIDE 40 MG/5 ML UNIT-DOSE CUP GT SCH (11:25)
[2021-09-21] MEDS: FAMOTIDINE 40 MG/5 ML ORAL SUSPENSION GT SCH ×2 (11:25→22:53)
[2021-09-21] MEDS: FLUTICASONE PROP 0.05% 16 GM NASAL SPRAY NS SCH (11:26)
[2021-09-21] MEDS: ALBUTEROL SO4 2.5/IPRATROPIUM 0.5 INH SOL 3 ML VIAL.NEB. NEB PRN (16:19)
[2021-09-21] MEDS: ALPRAZolam 1 MG TABLET PO PRN (17:28)
[2021-09-21] MEDS: MELATONIN 5 MG TABLETS PO SCH (22:53)
[2021-09-21] MEDS: ATORVASTATIN CA 40 MG TABLET (FP) GT SCH (22:53)
[2021-09-21] MEDS: MONTELUKAST NA 5 MG TAB.CHEW GT SCH (22:53)
[2021-09-22] MEDS: THEOPHYLLINE ANHYDROUS 80 MG/15 ML GT SCH ×4 (01:37→21:31)
[2021-09-22] MEDS: ALPRAZolam 1 MG TABLET PO PRN (05:11)
[2021-09-22] MEDS: BUDESONIDE 0.5 MG/2 ML INH SUSP VIAL NEB SCH ×2 (09:15→20:46)
[2021-09-22] MEDS: AMINO ACIDS/PROTEIN HYDROLYS 30 ML LIQUID.PKT GT SCH ×2 (09:30→18:34)
[2021-09-22] MEDS: BACITRACIN 15 GM TUBE TOPICAL OINTMENT TP SCH (10:00)
[2021-09-22] MEDS: predniSONE 5 MG TABLET (UD) GT SCH (10:13)
[2021-09-22] MEDS: APIXABAN 5 MG TABLET GT SCH ×2 (10:13→21:25)
[2021-09-22] MEDS: METOPROLOL TARTRATE 25 MG TABLET (FP) GT SCH ×2 (10:13→21:25)
[2021-09-22] MEDS: POLYETHYLENE GLYCOL (HEALTHYLAX) 3350 17 GM PACKET PEG SCH (10:13)
[2021-09-22] MEDS: FAMOTIDINE 40 MG/5 ML ORAL SUSPENSION GT SCH ×2 (10:14→21:30)
[2021-09-22] MEDS: FUROSEMIDE 40 MG/5 ML UNIT-DOSE CUP GT SCH (10:15)
[2021-09-22] MEDS: buPROPion HCL 100 MG TABLET PO SCH ×2 (10:15→21:31)
[2021-09-22] MEDS: FLUTICASONE PROP 0.05% 16 GM NASAL SPRAY NS SCH (14:26)
[2021-09-22] MEDS: MELATONIN 5 MG TABLETS PO SCH (21:24)
[2021-09-22] MEDS: ATORVASTATIN CA 40 MG TABLET (FP) GT SCH (21:25)
[2021-09-22] MEDS: MONTELUKAST NA 5 MG TAB.CHEW GT SCH (21:30)
[2021-09-23] MEDS: BUDESONIDE 0.5 MG/2 ML INH SUSP VIAL NEB SCH (08:00)
[2021-09-23] MEDS: AMINO ACIDS/PROTEIN HYDROLYS 30 ML LIQUID.PKT GT SCH (10:34)
[2021-09-23] MEDS: METOPROLOL TARTRATE 25 MG TABLET (FP) GT SCH (10:34)
[2021-09-23] MEDS: APIXABAN 5 MG TABLET GT SCH (10:34)
[2021-09-23] MEDS: predniSONE 5 MG TABLET (UD) GT SCH (10:34)
[2021-09-23] MEDS: buPROPion HCL 100 MG TABLET PO SCH (10:36)
[2021-09-23] MEDS: FAMOTIDINE 40 MG/5 ML ORAL SUSPENSION GT SCH (10:36)
[2021-09-23] MEDS: FUROSEMIDE 40 MG/5 ML UNIT-DOSE CUP GT SCH (10:36)
[2021-09-23] MEDS: FLUTICASONE PROP 0.05% 16 GM NASAL SPRAY NS SCH (10:37)
[2021-09-23] MEDS: POLYETHYLENE GLYCOL (HEALTHYLAX) 3350 17 GM PACKET PEG SCH (10:37)
[2021-09-23] MEDS: BACITRACIN 15 GM TUBE TOPICAL OINTMENT TP SCH (10:37)
[2021-09-23] MEDS: THEOPHYLLINE ANHYDROUS 80 MG/15 ML GT SCH (10:37)
[2021-09-23] MEDS: ALPRAZolam 1 MG TABLET PO PRN (10:46)
[2021-09-23 12:27] VITALS: BP 124/70; PULSE 84; RESP 16; TEMP 97.6
== END 2021-09-23 13:53 | disposition home health service (06) | DRG 207 ==
LOC: JER 18:57 → JERBED 22:31 → J5S 08-04 09:15 → JICU 08-04 12:28 → J5S 08-13 22:54 → JICU 08-23 16:10 → J5S 08-27 21:32
PROVIDERS: ADMIT Internal Medicine; ATTEND Family Medicine
PROC: 3E0H76Z Introduction of Nutritional Substance into Lower GI, Via Natural or Artificial Opening (ICD-10-PCS; principal; 2021-08-03)
PROC: 5A1955Z Respiratory Ventilation, Greater than 96 Consecutive Hours (ICD-10-PCS; 2021-08-03)
DX: J44.1 Chronic obstructive pulmonary disease with (acute) exacerbation (principal); J96.21 Acute and chronic respiratory failure with hypoxia; G93.41 Metabolic encephalopathy; J96.22 Acute and chronic respiratory failure with hypercapnia; E87.2 Acidosis; I24.8 Other forms of acute ischemic heart disease; R78.81 Bacteremia; I50.32 Chronic diastolic (congestive) heart failure; R64 Cachexia; J98.11 Atelectasis; I48.91 Unspecified atrial fibrillation; I48.0 Paroxysmal atrial fibrillation; D72.829 Elevated white blood cell count, unspecified; E16.2 Hypoglycemia, unspecified; R68.0 Hypothermia, not associated with low environmental temperature; F41.8 Other specified anxiety disorders; R89.9 Unspecified abnormal finding in specimens from other organs, systems and tissues; I11.0 Hypertensive heart disease with heart failure; R13.10 Dysphagia, unspecified; E78.5 Hyperlipidemia, unspecified; J44.9 Chronic obstructive pulmonary disease, unspecified; G47.00 Insomnia, unspecified; B95.4 Other streptococcus as the cause of diseases classified elsewhere; L81.9 Disorder of pigmentation, unspecified; Z93.1 Gastrostomy status; Z93.0 Tracheostomy status; Z68.25 Body mass index [BMI] 25.0-25.9, adult
CPT/HCPCS: 0241U-QW; 36415; 36600; 70450-TC; 71045-TC-FY; 74018-TC-FY; 74230-TC-FY; 80053; 80061; 80198; 81003; 82550; 82803; 82947; 82962; 83036; 83605; 83735; 83880; 84100; 84443; 84484; 85025; 85027; 85379; 87040; 87070; 87086; 87184; 87186; 87205; 92611-GN; 93005; 93010; 93306-TC; 93926-TC; 94002; 94640; 94667; 94761; 97116-GP; 97162-GP; 99285-25; C9803-CS; G0480; U0003; U0005